=== PATIENT | female | born 1980 | race Caucasian/White ===

== ENCOUNTER 2019-06-11 16:53 | Inpatient (IN) | payer SELFPAY ==
[~2019-06-11] VITALS: Ht 167.6 cm; Wt 70.0 kg
[~2019-06-11 16:53] MED LIST: HYDR-4383 PO
[2019-06-11] MEDS ORDERED: morphine 4 MG/ML inj SYRINge IV PRN (17:10)
[2019-06-11] MEDS ORDERED: normal saline 1000ML IV soln IVB ONE (17:10)
--- NOTE | 2019-06-11 17:30 | NUR ---
Assumed care of pt. C/o abd pain and R rib pain. Bilat eyes appear jaundice and pt states "they've been yellow for a week." VSS. IVF running and pt aware of need for urine sample. Visitor at bedside. Will continue to monitor.
[2019-06-11 17:36] LABS: EOSINOPHILS # (AUTO) 0.1 X10'3 (0-0.9); MONOCYTES # (AUTO) 0.6 X10'3 (0-0.9); WHITE BLOOD COUNT 5.6 X10'3 (4.5-11.0)
[2019-06-11 17:38] LABS: BASOPHILS % (AUTO) 0.6 % (0-1); EOSINOPHILS % (AUTO) 2.1 % (0-6); HEMATOCRIT 39.3 % (35.0-45.0); HEMOGLOBIN 13.7 g/dl (12.0-16.0); LYMPHOCYTES # (AUTO) 1.5 X10'3 (1.1-4.8); LYMPHOCYTES % (AUTO) 26.9 % (21-51); MEAN CORPUSCULAR HEMOGLOBIN 38.8 PG (27.0-31.0); MEAN CORPUSCULAR HGB CONC 34.8 g/dL (33.0-36.5); MEAN CORPUSCULAR VOLUME 111.5 FL (78-98); MONOCYTES % (AUTO) 11.3 % (2-12); NEUTROPHILS # (AUTO) 3.3 X10'3 (1.8-7.7); NEUTROPHILS % (AUTO) 59.1 % (42-75); PLATELET COUNT 122 X10'3 (140-440); RED BLOOD COUNT 3.53 X10'6 (4.20-5.60); RED CELL DISTRIBUTION WIDTH 16.3 % (11.5-14.5)
[2019-06-11 17:42] LABS: ALANINE AMINOTRANSFERASE 131 U/L (12-78); ALBUMIN/GLOBULIN RATIO 0.8 (1.1-1.5); ALKALINE PHOSPHATASE 230 IU/L (46-116); ANION GAP 9 (8-16); ASPARTATE AMINO TRANSFERASE 231 U/L (10-37); BLOOD UREA NITROGEN 5 MG/DL (7-18); BUN/CREATININE RATIO 6.4 (6.6-38.0); CALCIUM 9.6 MG/DL (8.5-10.1); CHLORIDE 97 MMOL/L (99-107); CREATININE 0.78 MG/DL (0.40-0.90); GLUCOSE 100 MG/DL (70-104); LIPASE 698 U/L (73-393); SODIUM 134 MMOL/L (135-145); TOTAL CARBON DIOXIDE 27.7 MMOL/L (24-32); TOTAL PROTEIN 6.8 G/DL (6.4-8.2); eGFR 83 ML/MIN
[2019-06-11 17:46] LABS: POTASSIUM 2.3 MMOL/L (3.5-5.1)
[2019-06-11 17:47] LABS: BILIRUBIN,TOTAL 12.5 MG/DL (0.1-1.0)
[2019-06-11] MEDS ORDERED: potassium Cl 20 mEq SR tablet PO ONE (17:50)
[2019-06-11] MEDS ORDERED: magnesium 2GM in 50ml NS 50 ML IV ONE (17:50)
[2019-06-11] MEDS: potassium Cl 10 mEq/100mL bag IV SCH ×2 (18:06→19:33)
[2019-06-11 18:13] LABS: URINE HCG NEGATIVE (NEG)
[2019-06-11 18:18] LABS: CLARITY,URINE SLIGHTLY CLOUDY (Clear); GLUCOSE, URINE 100 mg/dl (Neg); KETONES,URINE TRACE mg/dl (Neg); LEUKOCYTE ESTERASE ,URINE TRACE (Neg); NITRITES, URINE POSITIVE (Neg); OCCULT BLOOD,URINE MODERATE (Neg); PH,URINE 7.5 (4.8-8.0); PROTEIN,URINE TRACE mg/dl (Neg)
[2019-06-11 18:19] LABS: COLOR,URINE AMBER (Yellow); UA COLLECTION TYPE CLN CATCH MIDSTREAM
[2019-06-11 18:25] LABS: ETHANOL < 0.010 GM/DL (0.0-0.010)
[2019-06-11 18:26] LABS: URINE AMPHETAMINE SCREEN NEGATIVE (Neg); URINE BARBITUATE SCREEN NEGATIVE (Neg); URINE BENZODIAZEPINES SCREEN NEGATIVE (Neg); URINE CANNABINOID SCREEN POSITIVE (Neg); URINE COCAINE SCREEN NEGATIVE (Neg); URINE METHADONE SCREEN NEGATIVE (Neg); URINE OPIATE SCREEN NEGATIVE (Neg); URINE PHENCYCLIDINE SCREEN NEGATIVE (Neg)
[2019-06-11 18:28] LABS: BACTERIA,URINE 4+ /HPF (Neg); MUCUS STRANDS FEW /LPF (Neg); SQUAMOUS EPITHELIAL CELL,UR MANY /LPF (FEW)
[2019-06-11 18:31] LABS: LARGE PLATELETS FEW; PLATELET ESTIMATE DECREASED
[2019-06-11 18:32] LABS: ACETAMINOPHEN < 2.0 UG/ML (10-30); ANISOCYTOSIS 1+; POLYCHROMASIA FEW; TARGET CELLS 1+
[2019-06-11 18:33] LABS: SPHEROCYTES FEW
[2019-06-11] MEDS ORDERED: normal saline 1000ML IV soln IV ONE (19:00)
[2019-06-11] MEDS ORDERED: CefTRIAXone 2gm/D5W 50ml 50 ML IV ONE (19:00)
--- NOTE | 2019-06-11 19:09 | NUR ---
Pt. ambulated to the restroom independently.
[2019-06-11] MEDS ORDERED: magnesium 2GM in 50ml NS 50 ML IV PRN (20:15)
[2019-06-11] MEDS ORDERED: haloperidol lactate 5mg/ml inj IM PRN (20:15)
[2019-06-11] MEDS ORDERED: thiamine inj. 100 MG in normal saline 100ml IV soln 100 ML IV ONE (20:15)
[2019-06-11] MEDS ORDERED: potassium CL 10mEq/100ml bag 100 ML IV PRN ×2 (20:15)
[2019-06-11] MEDS ORDERED: mag hydrox/Alum hydrox/simeth 30ml oral suspension PO PRN (20:15)
[2019-06-11] MEDS ORDERED: magnesium 4gm in 100ml NS 100 ML IV PRN (20:15)
[2019-06-11] MEDS ORDERED: LORazepam 2 mg/ml vial IV PRN ×2 (20:15)
[2019-06-11] MEDS ORDERED: magnesium hydroxide 30ml (MOM) UD suspension PO PRN (20:15)
[2019-06-11] MEDS ORDERED: ondansetron/PF 4mg/2ml inj IV PRN (20:15)
[2019-06-11] MEDS ORDERED: thiamine inj. 100 MG, folic acid inj. 2 MG in normal saline 100ml IV soln 100 ML IV ONE (20:38)
[2019-06-11 21:22] LABS: ALANINE AMINOTRANSFERASE 107 U/L (12-78); ALBUMIN 2.4 G/DL (3.4-5.0); ALKALINE PHOSPHATASE 190 IU/L (46-116); BILIRUBIN,TOTAL 10.4 MG/DL (0.1-1.0); BLOOD UREA NITROGEN 4 MG/DL (7-18); BUN/CREATININE RATIO 5.9 (6.6-38.0); CALCIUM 8.1 MG/DL (8.5-10.1); CHLORIDE 103 MMOL/L (99-107); CREATININE 0.68 MG/DL (0.40-0.90); GLUCOSE 80 MG/DL (70-104); MAGNESIUM 1.3 MG/DL (1.5-2.4); TOTAL CARBON DIOXIDE 28.8 MMOL/L (24-32); eGFR > 90 ML/MIN
--- NOTE | 2019-06-11 21:50 | NUR ---
MARIANA SINGH FROM ER CALLED TO GIVE REPORT. RN WAS ATTENDING TO OTHER PATIENT. ER REQUESTED TO GIVE CHARGE NURSE REPORT. REPORT RECIEVED FROM MARIANA SINGH. REPORTED OFF TO [facility] RN. AWAITING PATIENTS ARRIVAL TO FLOOR.
[2019-06-11 21:53] LABS: ASPARTATE AMINO TRANSFERASE 194 U/L (10-37)
[2019-06-11 21:54] LABS: ALBUMIN/GLOBULIN RATIO 0.8 (1.1-1.5); ANION GAP 10 (8-16); SODIUM 142 MMOL/L (135-145); TOTAL PROTEIN 5.6 G/DL (6.4-8.2)
[2019-06-11 21:59] LABS: POTASSIUM 2.7 MMOL/L (3.5-5.1)
--- NOTE | 2019-06-11 22:00 | NUR ---
pt arrived to unit with all belongings, pt oriented to room, vitals stable, call light within reach, tele box attached
[2019-06-11] MEDS: MVI, adult No.4 with vit. K 10 ML in dextrose 5% water 500ml 500 ML IV SCH ×2 (22:16)
[2019-06-11] MEDS: potassium Cl 20 mEq SR tablet PO PRN (22:49)
[2019-06-11 23:00] VITALS: BP 117/87
--- NOTE | 2019-06-11 23:39 | NUR ---
NOTIFIED PAGER ID: [phone] MESSAGE: Zoila Pena [id number]- Mg 1.3 only IV replacement in order hard stick will need another line for MG, can we get a PO replacement.
[2019-06-12 03:00] VITALS: BP 105/80
[2019-06-12] MEDS: potassium Cl 20 mEq SR tablet PO PRN ×4 (03:31→18:43)
[2019-06-12 05:53] LABS: BASOPHILS % (AUTO) 0.4 % (0-1); EOSINOPHILS # (AUTO) 0.1 X10'3 (0-0.9); EOSINOPHILS % (AUTO) 1.4 % (0-6); HEMATOCRIT 36.2 % (35.0-45.0); HEMOGLOBIN 12.5 g/dl (12.0-16.0); LYMPHOCYTES # (AUTO) 1.4 X10'3 (1.1-4.8); LYMPHOCYTES % (AUTO) 28.6 % (21-51); MEAN CORPUSCULAR HEMOGLOBIN 38.8 PG (27.0-31.0); MEAN CORPUSCULAR HGB CONC 34.6 g/dL (33.0-36.5); MEAN PLATELET VOLUME 10.2 FL (7.4-10.4); MONOCYTES # (AUTO) 0.7 X10'3 (0-0.9); MONOCYTES % (AUTO) 14.9 % (2-12); NEUTROPHILS # (AUTO) 2.6 X10'3 (1.8-7.7); NEUTROPHILS % (AUTO) 54.7 % (42-75); PLATELET COUNT 111 X10'3 (140-440); RED BLOOD COUNT 3.23 X10'6 (4.20-5.60); RED CELL DISTRIBUTION WIDTH 16.1 % (11.5-14.5); WHITE BLOOD COUNT 4.8 X10'3 (4.5-11.0)
[2019-06-12 06:00] VITALS: BP 112/82
[2019-06-12 06:07] LABS: ANION GAP 8 (8-16); BLOOD UREA NITROGEN 4 MG/DL (7-18); CALCIUM 8.2 MG/DL (8.5-10.1); CHLORIDE 104 MMOL/L (99-107); CREATININE 0.67 MG/DL (0.40-0.90); GLUCOSE 87 MG/DL (70-104); SODIUM 137 MMOL/L (135-145); TOTAL CARBON DIOXIDE 24.9 MMOL/L (24-32); eGFR > 90 ML/MIN
[2019-06-12 06:08] LABS: ALANINE AMINOTRANSFERASE 97 U/L (12-78); ALBUMIN 2.4 G/DL (3.4-5.0); ALKALINE PHOSPHATASE 195 IU/L (46-116); AMYLASE 65 U/L (25-115); ASPARTATE AMINO TRANSFERASE 158 U/L (10-37); BILIRUBIN,TOTAL 11.3 MG/DL (0.1-1.0); HDL CHOLESTEROL 6 MG/DL (35-60); LDL CHOLESTEROL 134 MG/DL (50-100); MAGNESIUM 2.4 MG/DL (1.5-2.4)
[2019-06-12 06:13] LABS: ALBUMIN/GLOBULIN RATIO 0.8 (1.1-1.5); CHOL/HDL RATIO 27.7 (0.00-4.99); CHOLESTEROL 166 MG/DL (0-200); LIPASE 1684 U/L (73-393); PHOSPHORUS 1.9 MG/DL (2.3-4.5); TOTAL PROTEIN 5.5 G/DL (6.4-8.2); TRIGLYCERIDES 252 MG/DL (20-135)
--- NOTE | 2019-06-12 06:30 | NUR ---
Problems reprioritized. Patient report given, questions answered & plan of care reviewed with Bridger SINGH.
--- NOTE | 2019-06-12 06:31 | NUR ---
Patient in room PCU 3017. I have received report from SAMANTHA Couch and had the opportunity to ask questions and assume patient care.
[2019-06-12 07:13] LABS: ANISOCYTOSIS 1+; NUCLEATED RED BLOOD CELLS 1 /100WBC (0-0); PLATELET ESTIMATE DECREASED; TOTAL CELLS COUNTED 100
[2019-06-12 07:14] LABS: LARGE PLATELETS FEW; POLYCHROMASIA FEW; SPHEROCYTES FEW; TARGET CELLS 1+
[2019-06-12 07:15] LABS: HYPOCHROMASIA 2+
[2019-06-12] MEDS ORDERED: thiamine inj. 100 MG, folic acid inj. 2 MG in normal saline 100ml IV soln 100 ML IV SCH (08:00)
[2019-06-12] MEDS: K and/or MAG REPLACEMENT MC SCH (08:44)
[2019-06-12] MEDS: MVI, adult No.4 with vit. K 10 ML in dextrose 5% water 500ml 500 ML IV SCH ×2 (08:52)
[2019-06-12] MEDS: nicotine 7mg patch - 24hr TD SCH (08:57)
[2019-06-12] MEDS: dextrose 5%-normal saline 1,000 ML IV SCH ×2 (10:48→18:44)
[2019-06-12 11:00] VITALS: BP 120/88
[2019-06-12] MEDS: CefTRIAXone/D5W-Rocephin 1gm 50 ML IV SCH (12:27)
[2019-06-12 12:45] LABS: CLARITY,URINE CLOUDY (Clear); COLOR,URINE AMBER (Yellow); GLUCOSE, URINE 100 mg/dl (Neg); KETONES,URINE NEGATIVE (Neg); LEUKOCYTE ESTERASE ,URINE NEGATIVE (Neg); NITRITES, URINE NEGATIVE (Neg); OCCULT BLOOD,URINE NEGATIVE (Neg); PH,URINE 7.5 (4.8-8.0); PROTEIN,URINE NEGATIVE (Neg)
[2019-06-12 12:53] LABS: UA COLLECTION TYPE OTHER
[2019-06-12 12:54] LABS: MUCUS STRANDS FEW /LPF (Neg); SQUAMOUS EPITHELIAL CELL,UR MODERATE /LPF (FEW)
[2019-06-12 12:55] LABS: BACTERIA,URINE FEW /HPF (Neg); RBC,URINE 0-2 /HPF (0-2); WBC,URINE 0-4 /HPF (0-4)
[2019-06-12 15:00] VITALS: BP 113/89
[2019-06-12] MEDS ORDERED: acetaminophen 325mg tablet PO PRN (15:40)
[2019-06-12 18:00] VITALS: BP 130/96
--- NOTE | 2019-06-12 18:21 | NUR ---
Patient in room PCU 3017. I have received report from Bridger SINGH and had the opportunity to ask questions and assume patient care.
[2019-06-12 22:00] VITALS: BP 122/86
[2019-06-13 02:00] VITALS: BP 109/79
[2019-06-13] MEDS: dextrose 5%-normal saline 1,000 ML IV SCH ×3 (02:35→19:34)
[2019-06-13 05:28] LABS: BASOPHILS % (AUTO) 0.8 % (0-1); EOSINOPHILS # (AUTO) 0.1 X10'3 (0-0.9); EOSINOPHILS % (AUTO) 1.6 % (0-6); HEMATOCRIT 34.7 % (35.0-45.0); LYMPHOCYTES # (AUTO) 1.3 X10'3 (1.1-4.8); MEAN CORPUSCULAR HGB CONC 34.7 g/dL (33.0-36.5); MEAN CORPUSCULAR VOLUME 112.3 FL (78-98); MEAN PLATELET VOLUME 10.2 FL (7.4-10.4); MONOCYTES # (AUTO) 0.8 X10'3 (0-0.9); MONOCYTES % (AUTO) 15.2 % (2-12); NEUTROPHILS % (AUTO) 57.4 % (42-75); PLATELET COUNT 123 X10'3 (140-440); RED BLOOD COUNT 3.09 X10'6 (4.20-5.60); RED CELL DISTRIBUTION WIDTH 16.6 % (11.5-14.5); WHITE BLOOD COUNT 5.2 X10'3 (4.5-11.0)
[2019-06-13 05:45] LABS: ANION GAP 9 (8-16); BLOOD UREA NITROGEN 3 MG/DL (7-18); BUN/CREATININE RATIO 4.8 (6.6-38.0); CALCIUM 7.6 MG/DL (8.5-10.1); CHLORIDE 107 MMOL/L (99-107); CREATININE 0.62 MG/DL (0.40-0.90); GLUCOSE 91 MG/DL (70-104); MAGNESIUM 1.8 MG/DL (1.5-2.4); SODIUM 141 MMOL/L (135-145); TOTAL CARBON DIOXIDE 24.6 MMOL/L (24-32); eGFR > 90 ML/MIN
[2019-06-13 05:46] LABS: ALANINE AMINOTRANSFERASE 82 U/L (12-78); ALBUMIN 2.3 G/DL (3.4-5.0); ALKALINE PHOSPHATASE 180 IU/L (46-116); AMYLASE 74 U/L (25-115); ASPARTATE AMINO TRANSFERASE 126 U/L (10-37)
[2019-06-13 06:00] VITALS: BP 117/76
[2019-06-13 06:07] LABS: ALBUMIN/GLOBULIN RATIO 0.7 (1.1-1.5); TOTAL PROTEIN 5.4 G/DL (6.4-8.2)
[2019-06-13 06:08] LABS: POTASSIUM 3.2 MMOL/L (3.5-5.1)
[2019-06-13 06:09] LABS: PHOSPHORUS 1.1 MG/DL (2.3-4.5)
--- NOTE | 2019-06-13 06:11 | NUR ---
Patient in room PCU 3017. I have received report from SAMANTHA Day and had the opportunity to ask questions and assume patient care.
--- NOTE | 2019-06-13 06:11 | NUR ---
Problems reprioritized. Patient report given, questions answered & plan of care reviewed with Bridger SINGH.
[2019-06-13] MEDS ORDERED: sodium phosphate inj. 15 MMOL in dextrose 5%-water 150 ML IV PRN (06:20)
[2019-06-13] MEDS ORDERED: Neutra Phos packet PO PRN (06:20)
[2019-06-13] MEDS ORDERED: sodium phosphate inj. 30 MMOL in dextrose 5%-water 250 ML IV ONE (06:20)
[2019-06-13 06:25] LABS: PLATELET ESTIMATE DECREASED
[2019-06-13 06:26] LABS: ANISOCYTOSIS 1+; LARGE PLATELETS FEW; POLYCHROMASIA 1+; STOMATOCYTES 2+; TARGET CELLS 1+
[2019-06-13 07:15] LABS: HIV ANTIBODY 1&2 RAPID NON-REACTIVE (Neg)
[2019-06-13] MEDS: K and/or MAG REPLACEMENT MC SCH (07:25)
[2019-06-13] MEDS: thiamine 100mg tablet PO SCH (07:37)
[2019-06-13] MEDS: folic acid 1mg tablet PO SCH (07:37)
[2019-06-13] MEDS: multivitamins, therapeutics tablet PO SCH (07:37)
[2019-06-13] MEDS: potassium Cl 20 mEq SR tablet PO PRN ×3 (07:37→22:08)
[2019-06-13] MEDS: CefTRIAXone/D5W-Rocephin 1gm 50 ML IV SCH (07:38)
[2019-06-13 07:42] LABS: LIPASE 1575 U/L (73-393)
[2019-06-13] MEDS: nicotine 7mg patch - 24hr TD SCH (07:44)
[2019-06-13 09:10] LABS: HBSAG SCREEN Negative (Negative); HEP A AB, IGM Negative (Negative); HEP B CORE AB, IGM Negative (Negative); HEPATITIS C ANTIBODY <0.1 s/co ratio (0.0-0.9)
[2019-06-13] MEDS ORDERED: magnesium 2GM in 50ml NS 50 ML IV ONE (09:10)
[2019-06-13] MEDS ORDERED: potassium phosphate inj 30 MMOL in normal saline 500ml IV soln 490 ML IV ONE (09:10)
[2019-06-13 11:00] VITALS: BP 107/71
[2019-06-13 15:00] VITALS: BP 125/95
--- NOTE | 2019-06-13 18:05 | NUR ---
Patient in room PCU 3017. I have received report from Bridger SINGH and had the opportunity to ask questions and assume patient care.
--- NOTE | 2019-06-13 18:16 | NUR ---
Problems reprioritized. Patient report given, questions answered & plan of care reviewed with SAMANTHA Barksdale.
[2019-06-13 19:00] VITALS: BP 131/85
[2019-06-13 23:00] VITALS: BP 124/89
[2019-06-14 03:00] VITALS: BP 121/79
[2019-06-14] MEDS: dextrose 5%-normal saline 1,000 ML IV SCH ×3 (03:40→22:41)
[2019-06-14 06:00] VITALS: BP 117/83
--- NOTE | 2019-06-14 06:00 | NUR ---
Problems reprioritized. Patient report given, questions answered & plan of care reviewed with Katharine SINGH.
[2019-06-14 06:14] LABS: EOSINOPHILS # (AUTO) 0.1 X10'3 (0-0.9); LYMPHOCYTES # (AUTO) 1.4 X10'3 (1.1-4.8)
[2019-06-14 06:17] LABS: BASOPHILS % (AUTO) 0.7 % (0-1); EOSINOPHILS % (AUTO) 2.2 % (0-6); HEMATOCRIT 34.3 % (35.0-45.0); HEMOGLOBIN 11.9 g/dl (12.0-16.0); LYMPHOCYTES % (AUTO) 24.1 % (21-51); MEAN CORPUSCULAR HEMOGLOBIN 39.5 PG (27.0-31.0); MEAN CORPUSCULAR HGB CONC 34.7 g/dL (33.0-36.5); MEAN CORPUSCULAR VOLUME 113.8 FL (78-98); MEAN PLATELET VOLUME 10.2 FL (7.4-10.4); MONOCYTES # (AUTO) 1.1 X10'3 (0-0.9); MONOCYTES % (AUTO) 18.8 % (2-12); NEUTROPHILS # (AUTO) 3.1 X10'3 (1.8-7.7); NEUTROPHILS % (AUTO) 54.2 % (42-75); PLATELET COUNT 135 X10'3 (140-440); RED BLOOD COUNT 3.01 X10'6 (4.20-5.60); RED CELL DISTRIBUTION WIDTH 16.9 % (11.5-14.5); WHITE BLOOD COUNT 5.6 X10'3 (4.5-11.0)
[2019-06-14 06:34] LABS: ALANINE AMINOTRANSFERASE 75 U/L (12-78); ALBUMIN 2.2 G/DL (3.4-5.0); ALKALINE PHOSPHATASE 181 IU/L (46-116); AMYLASE 46 U/L (25-115); ANION GAP 10 (8-16); BILIRUBIN,TOTAL 14.3 MG/DL (0.1-1.0); BLOOD UREA NITROGEN 3 MG/DL (7-18); CALCIUM 7.8 MG/DL (8.5-10.1); CHLORIDE 107 MMOL/L (99-107); LIPASE 716 U/L (73-393); MAGNESIUM 1.8 MG/DL (1.5-2.4); SODIUM 140 MMOL/L (135-145); TOTAL CARBON DIOXIDE 22.9 MMOL/L (24-32); eGFR > 90 ML/MIN
--- NOTE | 2019-06-14 06:46 | NUR ---
Patient in room PCU 3017. I have received report from SAMANTHA Barksdale and had the opportunity to ask questions and assume patient care.
[2019-06-14 06:47] LABS: ASPARTATE AMINO TRANSFERASE 129 U/L (10-37)
[2019-06-14 06:48] LABS: ALBUMIN/GLOBULIN RATIO 0.7 (1.1-1.5); GLUCOSE 88 MG/DL (70-104); PHOSPHORUS 2.3 MG/DL (2.3-4.5); TOTAL PROTEIN 5.2 G/DL (6.4-8.2)
[2019-06-14 06:50] LABS: POTASSIUM 3.4 MMOL/L (3.5-5.1)
[2019-06-14] MEDS: multivitamins, therapeutics tablet PO SCH (07:41)
[2019-06-14] MEDS: folic acid 1mg tablet PO SCH (07:41)
[2019-06-14] MEDS: CefTRIAXone/D5W-Rocephin 1gm 50 ML IV SCH (07:42)
[2019-06-14] MEDS: potassium Cl 20 mEq SR tablet PO PRN ×3 (07:42→16:33)
[2019-06-14] MEDS: nicotine 7mg patch - 24hr TD SCH (07:42)
[2019-06-14] MEDS: K and/or MAG REPLACEMENT MC SCH (07:48)
[2019-06-14 07:57] LABS: ANISOCYTOSIS 1+; PLATELET ESTIMATE DECREASED
[2019-06-14 07:58] LABS: POLYCHROMASIA 1+; STOMATOCYTES 1+; TARGET CELLS FEW
--- NOTE | 2019-06-14 08:19 | NUR ---
Patient in room PCU 3017. I have received report from Katharine SINGH and had the opportunity to ask questions and assume patient care.
--- NOTE | 2019-06-14 08:19 | NUR ---
Problems reprioritized. Patient report given, questions answered & plan of care reviewed with SAMANTHA Evans.
[2019-06-14] MEDS: thiamine 100mg tablet PO SCH (08:33)
[2019-06-14 12:00] VITALS: BP 121/82
[2019-06-14 16:00] VITALS: BP 116/81
--- NOTE | 2019-06-14 18:00 | NUR ---
Patient in room PCU 3017. I have received report from Cristina SINGH and had the opportunity to ask questions and assume patient care.
--- NOTE | 2019-06-14 18:00 | NUR ---
Problems reprioritized. Patient report given, questions answered & plan of care reviewed with Apolonia SINGH.
[2019-06-14 19:00] VITALS: BP 124/86
[2019-06-14] MEDS: lactobacillus rhamnosus 10,000 MMU CELLS/CAPSULE PO SCH (20:03)
[2019-06-14] MEDS: lactulose 20gm/30ml cup PO SCH (20:03)
[2019-06-14 23:00] VITALS: BP 120/87
[2019-06-15 03:00] VITALS: BP 118/81
[2019-06-15 05:39] LABS: BASOPHILS % (AUTO) 0.8 % (0-1); EOSINOPHILS # (AUTO) 0.1 X10'3 (0-0.9); MONOCYTES # (AUTO) 1.1 X10'3 (0-0.9); RED CELL DISTRIBUTION WIDTH 16.7 % (11.5-14.5)
[2019-06-15 05:40] LABS: EOSINOPHILS % (AUTO) 2.3 % (0-6); HEMATOCRIT 34.9 % (35.0-45.0); LYMPHOCYTES # (AUTO) 1.3 X10'3 (1.1-4.8); LYMPHOCYTES % (AUTO) 21.4 % (21-51); MEAN CORPUSCULAR HEMOGLOBIN 39.1 PG (27.0-31.0); MEAN CORPUSCULAR HGB CONC 34.3 g/dL (33.0-36.5); MEAN PLATELET VOLUME 10.6 FL (7.4-10.4); MONOCYTES % (AUTO) 18.8 % (2-12); NEUTROPHILS # (AUTO) 3.4 X10'3 (1.8-7.7); NEUTROPHILS % (AUTO) 56.7 % (42-75); PLATELET COUNT 150 X10'3 (140-440); RED BLOOD COUNT 3.06 X10'6 (4.20-5.60)
[2019-06-15 05:46] LABS: ALANINE AMINOTRANSFERASE 61 U/L (12-78); ALBUMIN 2.1 G/DL (3.4-5.0); ALKALINE PHOSPHATASE 179 IU/L (46-116); AMYLASE 35 U/L (25-115); ANION GAP 9 (8-16); BLOOD UREA NITROGEN 1 MG/DL (7-18); CALCIUM 8.5 MG/DL (8.5-10.1); CHLORIDE 107 MMOL/L (99-107); LIPASE 454 U/L (73-393); MAGNESIUM 1.7 MG/DL (1.5-2.4); SODIUM 138 MMOL/L (135-145); TOTAL CARBON DIOXIDE 21.7 MMOL/L (24-32)
[2019-06-15 06:00] VITALS: BP 124/76
--- NOTE | 2019-06-15 06:00 | NUR ---
Patient in room PCU 3017. I have received report from Apolonia SINGH and had the opportunity to ask questions and assume patient care.
[2019-06-15 06:02] LABS: ASPARTATE AMINO TRANSFERASE 116 U/L (10-37)
[2019-06-15 06:05] LABS: BUN/CREATININE RATIO 2.3 (6.6-38.0); CREATININE 0.43 MG/DL (0.40-0.90); GLUCOSE 73 MG/DL (70-104); POTASSIUM 3.5 MMOL/L (3.5-5.1); eGFR > 90 ML/MIN
[2019-06-15 06:06] LABS: ALBUMIN/GLOBULIN RATIO 0.7 (1.1-1.5); PHOSPHORUS 2.6 MG/DL (2.3-4.5); TOTAL PROTEIN 5.1 G/DL (6.4-8.2)
--- NOTE | 2019-06-15 06:07 | NUR ---
Problems reprioritized. Patient report given, questions answered & plan of care reviewed with Cristina SINGH. Addendum: 06/15/19 at 1148 by Cristina Banegas RN incorrect charting
[2019-06-15] MEDS: multivitamins, therapeutics tablet PO SCH (07:59)
[2019-06-15] MEDS: thiamine 100mg tablet PO SCH (07:59)
[2019-06-15] MEDS: lactulose 20gm/30ml cup PO SCH (07:59)
[2019-06-15] MEDS: lactobacillus rhamnosus 10,000 MMU CELLS/CAPSULE PO SCH ×2 (07:59→20:23)
[2019-06-15] MEDS: K and/or MAG REPLACEMENT MC SCH (08:00)
[2019-06-15] MEDS: CefTRIAXone/D5W-Rocephin 1gm 50 ML IV SCH (08:00)
[2019-06-15] MEDS: folic acid 1mg tablet PO SCH (08:00)
[2019-06-15] MEDS: nicotine 7mg patch - 24hr TD SCH (08:01)
[2019-06-15 10:08] LABS: PLATELET ESTIMATE NORMAL
[2019-06-15 10:09] LABS: ANISOCYTOSIS 1+; POLYCHROMASIA 1+; STOMATOCYTES 2+; TARGET CELLS FEW
[2019-06-15 11:00] VITALS: BP 108/72
--- NOTE | 2019-06-15 11:00 | NUR ---
Received report that patient had left unit and was seen outside hospital with s/o. Patient returned and I discussed hospital policy and safety issues with leaving. Patient verbalized understanding and agrees to comply.
[2019-06-15 15:00] VITALS: BP 108/76
--- NOTE | 2019-06-15 18:25 | NUR ---
Problems reprioritized. Patient report given, questions answered & plan of care reviewed with Shirley SINGH.
--- NOTE | 2019-06-15 18:51 | NUR ---
Patient in room PCU 3017. I have received report from Cristina SINGH and had the opportunity to ask questions and assume patient care.
[2019-06-15 19:00] VITALS: BP 112/76
[2019-06-15 22:00] VITALS: BP 118/83
[2019-06-16 02:00] VITALS: BP 127/64
[2019-06-16 06:00] VITALS: BP 121/90
--- NOTE | 2019-06-16 06:00 | NUR ---
Patient in room PCU 3017. I have received report from Shirley SINGH and had the opportunity to ask questions and assume patient care.
--- NOTE | 2019-06-16 06:09 | NUR ---
Problems reprioritized. Patient report given, questions answered & plan of care reviewed with Cristina SINGH.
[2019-06-16 06:18] LABS: ALANINE AMINOTRANSFERASE 58 U/L (12-78); ALBUMIN 1.9 G/DL (3.4-5.0); ALKALINE PHOSPHATASE 180 IU/L (46-116); AMYLASE 51 U/L (25-115); ANION GAP 9 (8-16); BLOOD UREA NITROGEN 2 MG/DL (7-18); BUN/CREATININE RATIO 5.7 (6.6-38.0); CALCIUM 8.5 MG/DL (8.5-10.1); CHLORIDE 106 MMOL/L (99-107); CREATININE 0.35 MG/DL (0.40-0.90); LIPASE 870 U/L (73-393); MAGNESIUM 1.5 MG/DL (1.5-2.4); SODIUM 138 MMOL/L (135-145); TOTAL CARBON DIOXIDE 23.4 MMOL/L (24-32); eGFR > 90 ML/MIN
[2019-06-16 06:19] LABS: BASOPHILS # (AUTO) 0.1 X10'3 (0-0.2); EOSINOPHILS # (AUTO) 0.1 X10'3 (0-0.9)
[2019-06-16 06:24] LABS: BASOPHILS % (AUTO) 0.9 % (0-1); EOSINOPHILS % (AUTO) 1.4 % (0-6); HEMATOCRIT 35.6 % (35.0-45.0); HEMOGLOBIN 12.3 g/dl (12.0-16.0); LYMPHOCYTES # (AUTO) 1.3 X10'3 (1.1-4.8); LYMPHOCYTES % (AUTO) 19.8 % (21-51); MEAN CORPUSCULAR HEMOGLOBIN 39.1 PG (27.0-31.0); MEAN CORPUSCULAR HGB CONC 34.6 g/dL (33.0-36.5); MEAN PLATELET VOLUME 10.3 FL (7.4-10.4); MONOCYTES # (AUTO) 1.3 X10'3 (0-0.9); MONOCYTES % (AUTO) 19.6 % (2-12); NEUTROPHILS # (AUTO) 3.9 X10'3 (1.8-7.7); NEUTROPHILS % (AUTO) 58.3 % (42-75); PLATELET COUNT 180 X10'3 (140-440); RED BLOOD COUNT 3.15 X10'6 (4.20-5.60); RED CELL DISTRIBUTION WIDTH 16.3 % (11.5-14.5); WHITE BLOOD COUNT 6.7 X10'3 (4.5-11.0)
[2019-06-16 06:33] LABS: ASPARTATE AMINO TRANSFERASE 107 U/L (10-37)
[2019-06-16 06:36] LABS: GLUCOSE 70 MG/DL (70-104); PHOSPHORUS 2.9 MG/DL (2.3-4.5); POTASSIUM 3.3 MMOL/L (3.5-5.1)
[2019-06-16 06:41] LABS: ALBUMIN/GLOBULIN RATIO 0.6 (1.1-1.5); TOTAL PROTEIN 5.1 G/DL (6.4-8.2)
[2019-06-16] MEDS: K and/or MAG REPLACEMENT MC SCH (08:00)
[2019-06-16] MEDS: folic acid 1mg tablet PO SCH (08:11)
[2019-06-16] MEDS: multivitamins, therapeutics tablet PO SCH (08:11)
[2019-06-16] MEDS: lactobacillus rhamnosus 10,000 MMU CELLS/CAPSULE PO SCH ×2 (08:11→20:51)
[2019-06-16] MEDS: thiamine 100mg tablet PO SCH (08:11)
[2019-06-16] MEDS: nicotine 7mg patch - 24hr TD SCH (08:13)
[2019-06-16] MEDS ORDERED: potassium Cl 20 mEq SR tablet PO PRN (08:35)
[2019-06-16] MEDS ORDERED: magnesium Cl slow-release 64mg tablet PO PRN (08:35)
[2019-06-16] MEDS: potassium Cl 20 mEq SR tablet PO PRN ×3 (10:39→20:51)
[2019-06-16 11:00] VITALS: BP 111/79
[2019-06-16 11:22] LABS: ANISOCYTOSIS 1+; PLATELET ESTIMATE DECREASED; TOTAL CELLS COUNTED 100
[2019-06-16 11:24] LABS: POLYCHROMASIA FEW; STOMATOCYTES FEW; TARGET CELLS FEW
--- NOTE | 2019-06-16 13:55 | NUR ---
Initial: Pt admit w/ etoh hepatitis remains jaundiced per MD note. Also pancreatitis secondary to etoh per MD. Per EMR pt has been on 2 year etoh binge drinks fifth of vodka daily. On thiamin/folic/MVI receiving electrolyte replacement per protocol. PO 100% mechanical soft diet meeting needs. LBM 06/15. Will continue to monitor. Rec: 1. continue mechanical soft diet 2. MVI/thiamin/folic for etoh 3. consider pancreatic enzymes per MD given pancreatitis 4. wt per rx Addendum: 06/16/19 at [address] Amended: Links added.
[2019-06-16 15:00] VITALS: BP 113/78
--- NOTE | 2019-06-16 18:30 | NUR ---
Problems reprioritized. Patient report given, questions answered & plan of care reviewed with Shirley SINGH.
--- NOTE | 2019-06-16 18:30 | NUR ---
Patient in room PCU 3017. I have received report from Cristina SINGH and had the opportunity to ask questions and assume patient care.
[2019-06-16 19:00] VITALS: BP 116/81
[2019-06-16 23:00] VITALS: BP 120/85
[2019-06-17 02:00] VITALS: BP 121/77
[2019-06-17 05:11] LABS: BASOPHILS # (AUTO) 0.1 X10'3 (0-0.2); EOSINOPHILS # (AUTO) 0.1 X10'3 (0-0.9); MONOCYTES # (AUTO) 1.3 X10'3 (0-0.9); WHITE BLOOD COUNT 6.8 X10'3 (4.5-11.0)
[2019-06-17 05:17] LABS: BASOPHILS % (AUTO) 0.8 % (0-1); EOSINOPHILS % (AUTO) 2.1 % (0-6); HEMATOCRIT 36.1 % (35.0-45.0); HEMOGLOBIN 12.4 g/dl (12.0-16.0); LYMPHOCYTES # (AUTO) 1.8 X10'3 (1.1-4.8); LYMPHOCYTES % (AUTO) 26.8 % (21-51); MEAN CORPUSCULAR HGB CONC 34.4 g/dL (33.0-36.5); MEAN CORPUSCULAR VOLUME 113.4 FL (78-98); MEAN PLATELET VOLUME 10.1 FL (7.4-10.4); MONOCYTES % (AUTO) 19.1 % (2-12); NEUTROPHILS # (AUTO) 3.5 X10'3 (1.8-7.7); NEUTROPHILS % (AUTO) 51.2 % (42-75); PLATELET COUNT 198 X10'3 (140-440); RED BLOOD COUNT 3.18 X10'6 (4.20-5.60); RED CELL DISTRIBUTION WIDTH 15.8 % (11.5-14.5)
[2019-06-17 05:40] LABS: ALANINE AMINOTRANSFERASE 54 U/L (12-78); ALKALINE PHOSPHATASE 185 IU/L (46-116); ANION GAP 11 (8-16); BILIRUBIN,TOTAL 19.8 MG/DL (0.1-1.0); BLOOD UREA NITROGEN 4 MG/DL (7-18); CALCIUM 9.1 MG/DL (8.5-10.1); CHLORIDE 105 MMOL/L (99-107); LIPASE 591 U/L (73-393); SODIUM 140 MMOL/L (135-145); TOTAL CARBON DIOXIDE 24.2 MMOL/L (24-32)
[2019-06-17 05:54] LABS: ALBUMIN/GLOBULIN RATIO 0.6 (1.1-1.5); ASPARTATE AMINO TRANSFERASE 123 U/L (10-37); BUN/CREATININE RATIO 9.5 (6.6-38.0); CREATININE 0.42 MG/DL (0.40-0.90); GLUCOSE 66 MG/DL (70-104); POTASSIUM 3.9 MMOL/L (3.5-5.1); TOTAL PROTEIN 5.2 G/DL (6.4-8.2); eGFR > 90 ML/MIN
--- NOTE | 2019-06-17 06:00 | NUR ---
Patient in room PCU 3017. I have received report from SAMANTHA Watson and had the opportunity to ask questions and assume patient care. Pt is awake and alert in NAD
--- NOTE | 2019-06-17 06:25 | NUR ---
Problems reprioritized. Patient report given, questions answered & plan of care reviewed with Henry RN and Radha RN.
[2019-06-17 07:11] VITALS: BP 115/84
[2019-06-17] MEDS: K and/or MAG REPLACEMENT MC SCH (08:00)
[2019-06-17] MEDS: lactobacillus rhamnosus 10,000 MMU CELLS/CAPSULE PO SCH (08:22)
[2019-06-17] MEDS: thiamine 100mg tablet PO SCH (08:23)
[2019-06-17] MEDS ORDERED: NO HOME MEDS (08:23)
[2019-06-17] MEDS: folic acid 1mg tablet PO SCH (08:23)
[2019-06-17] MEDS: multivitamins, therapeutics tablet PO SCH (08:23)
[2019-06-17] MEDS: nicotine 7mg patch - 24hr TD SCH (08:24)
[2019-06-17 11:00] VITALS: BP 120/77
[2019-06-17] MEDS ORDERED: NICO-630 TD (11:52)
[2019-06-17] MEDS ORDERED: FOLI1TAB16 PO (11:52)
[2019-06-17] MEDS ORDERED: MULT-1179 PO (11:52)
[2019-06-17] MEDS ORDERED: thiamine tablet PO (11:52)
[2019-06-17] MEDS ORDERED: ONDA4TAB6 PO (11:52)
--- NOTE | 2019-06-17 13:00 | NUR ---
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
[2019-06-17 14:24] LABS: ANISOCYTOSIS 1+; PLATELET ESTIMATE NORMAL; TOTAL CELLS COUNTED 100
[2019-06-17 14:25] LABS: TARGET CELLS FEW
[2019-06-17 14:26] LABS: LARGE PLATELETS FEW; TOXIC VACUOLATION 1+
== END 2019-06-17 13:19 | disposition home or self-care (01) | DRG 432 ==
LOC: ER 19:52 → PCU 3S 21:58 → CMPBEDREQ 22:32 → PCU 3S 06-13 12:10
PROVIDERS: ADMIT Family Medicine; ATTEND Family Medicine
DX: K70.10 Alcoholic hepatitis without ascites (principal); K85.20 Alcohol induced acute pancreatitis without necrosis or infection; N39.0 Urinary tract infection, site not specified; E78.5 Hyperlipidemia, unspecified; F12.10 Cannabis abuse, uncomplicated; F10.10 Alcohol abuse, uncomplicated; E87.6 Hypokalemia; F17.200 Nicotine dependence, unspecified, uncomplicated; E83.42 Hypomagnesemia; D69.6 Thrombocytopenia, unspecified; I10 Essential (primary) hypertension; K76.0 Fatty (change of) liver, not elsewhere classified; N83.202 Unspecified ovarian cyst, left side; Z82.3 Family history of stroke; Z83.3 Family history of diabetes mellitus; Z88.8 Allergy status to other drugs, medicaments and biological substances; Z71.41 Alcohol abuse counseling and surveillance of alcoholic; Z71.6 Tobacco abuse counseling
CPT/HCPCS: 36415; 74176; 74181; 76700; 76705; 80053; 80061; 80305; 80320; 80329; 81001; 81025; 82140; 82150; 83690; 83735; 84100; 84132; 85025; 85610; 86703; 86705; 86706; 86709; 86803; 87081; 87088; 87340; 96365; 96366; 96367; 96375; 97116; 97161; 99285; G0378; J0696; J3411; J3475; J3480; J3490; J7040; J7042; J7060

== ENCOUNTER 2019-07-28 11:58 | Emergency (ER) | payer MEDICAID, OTHER ==
[~2019-07-28] VITALS: Ht 167.6 cm; Wt 78.2 kg
[~2019-07-28 11:58] MED LIST changes: +FOLI1TAB16 PO; -HYDR-4383 PO; +MULT-1179 PO; +NICO-630 TD; +ONDA4TAB6 PO; +thiamine tablet PO
--- NOTE | 2019-07-28 13:08 | NUR ---
PATIENT STATES SHE WAS HOSPITALIZED A FEW WEEKS AGO WITH ELEVATED BILI LEVELS. STATES SHE IS HAVING LEFT SIDE FACIAL AND JAW PAIN FROM TOOTH ACHE. SHE WOULD LIKE TO HAVE THE TOOTH LOOKED AT AND IS IN NEED OF CLEARANCE TO RETURN TO WORK FROM RECENT HOSPITALIZATION. STATES SHE IS UNABLE TO GET IN TO SEE HER PRIMARY CARE DOCTOR AND CANNOT GET APPOINTMENT UNTIL AUGUST.
[2019-07-28] MEDS ORDERED: PENI250T2 PO (13:40)
[2019-07-28] MEDS ORDERED: NAPR-56 PO (13:40)
[2019-07-28 13:54] VITALS: BP 144/98
== END 2019-07-28 14:06 | disposition home or self-care (01) ==
LOC: ER 11:59
DX: K08.89 Other specified disorders of teeth and supporting structures (principal); Z88.8 Allergy status to other drugs, medicaments and biological substances; Z79.899 Other long term (current) drug therapy
CPT/HCPCS: 99283

== ENCOUNTER 2021-04-30 18:07 | Emergency (ER) | payer MEDICAID ==
[~2021-04-30] VITALS: Ht 167.6 cm; Wt 75.0 kg
[~2021-04-30 18:07] MED LIST changes: +ACET-1008 PO; -FOLI1TAB16 PO; +FURO-150 PO; -MULT-1179 PO; -NICO-630 TD; +SPIR25TA5 PO; -thiamine tablet PO
[2021-04-30 19:27] LABS: BASOPHILS # (AUTO) 0.1 X10'3 (0-0.2); BASOPHILS % (AUTO) 0.6 % (0-1); EOSINOPHILS # (AUTO) 0.1 X10'3 (0-0.9); EOSINOPHILS % (AUTO) 1.1 % (0-6); HEMATOCRIT 36.4 % (35.0-45.0); HEMOGLOBIN 12.2 g/dl (12.0-16.0); LYMPHOCYTES # (AUTO) 1.8 X10'3 (1.1-4.8); MEAN CORPUSCULAR HEMOGLOBIN 33.1 PG (27.0-31.0); MEAN CORPUSCULAR HGB CONC 33.5 g/dL (33.0-36.5); MEAN CORPUSCULAR VOLUME 98.8 FL (78-98); MEAN PLATELET VOLUME 8.1 FL (7.4-10.4); MONOCYTES # (AUTO) 0.9 X10'3 (0-0.9); MONOCYTES % (AUTO) 7.7 % (2-12); NEUTROPHILS # (AUTO) 8.3 X10'3 (1.8-7.7); NEUTROPHILS % (AUTO) 74.6 % (42-75); PLATELET COUNT 247 X10'3 (140-440); RED BLOOD COUNT 3.69 X10'6 (4.20-5.60); RED CELL DISTRIBUTION WIDTH 16.4 % (11.5-14.5); WHITE BLOOD COUNT 11.2 X10'3 (4.5-11.0)
[2021-04-30 19:46] LABS: ALANINE AMINOTRANSFERASE 22 U/L (12-78); ALBUMIN 2.5 G/DL (3.4-5.0); ALKALINE PHOSPHATASE 422 IU/L (46-116); ANION GAP 9 (8-16); ASPARTATE AMINO TRANSFERASE 105 U/L (10-37); BILIRUBIN,TOTAL 5.2 MG/DL (0.1-1.0); BLOOD UREA NITROGEN 10 MG/DL (7-18); CALCIUM 8.4 MG/DL (8.5-10.1); CHLORIDE 97 MMOL/L (99-107); CREATININE 0.77 MG/DL (0.40-0.90); GLUCOSE 82 MG/DL (70-104); SODIUM 134 MMOL/L (135-145); eGFR 83 ML/MIN
[2021-04-30 19:49] LABS: ALBUMIN/GLOBULIN RATIO 0.4 (1.1-1.5); TOTAL PROTEIN 8.5 G/DL (6.4-8.2)
[2021-04-30 19:52] LABS: POTASSIUM 2.4 MMOL/L (3.5-5.1)
[2021-04-30] MEDS ORDERED: potassium Cl 20 mEq SR tablet PO STA (20:50)
[2021-04-30] MEDS ORDERED: potassium Cl 40 mEq/0.45% sodium chloride IV soln 520ml IV ONE (20:50)
[2021-04-30] MEDS ORDERED: magnesium 2GM in 50ml NS 50 ML IV ONE (20:50)
[2021-04-30] MEDS ORDERED: Potassium Cl 40 MEQ in sodium chloride 0.45% 500 ML IV ONE (21:00)
[2021-04-30] MEDS ORDERED: POTASSIUM BICARB 20meq eff tab 20 MEQ TABLET.EFF PO ONE (22:00)
[2021-05-01] MEDS ORDERED: albumin (human) 25% 100 ML IV solution IV ONE (00:40)
[2021-05-01] MEDS: magnesium 2GM in 50ml NS 50 ML IV SCH ×2 (00:40→01:40)
[2021-05-01] MEDS ORDERED: potassium Cl 20 mEq SR tablet PO ONE (00:40)
[2021-05-01] MEDS: potassium Cl 10 mEq/100mL bag IV SCH ×2 (00:45→01:45)
[2021-05-01] MEDS ORDERED: POTA20TA19 PO (02:15)
[2021-05-01 02:55] LABS: ANION GAP 9 (8-16); BLOOD UREA NITROGEN 9 MG/DL (7-18); BUN/CREATININE RATIO 14.8 (6.6-38.0); CHLORIDE 99 MMOL/L (99-107); CREATININE 0.61 MG/DL (0.40-0.90); GLUCOSE 66 MG/DL (70-104); POTASSIUM 3.1 MMOL/L (3.5-5.1); SODIUM 136 MMOL/L (135-145); TOTAL CARBON DIOXIDE 27.7 MMOL/L (24-32)
[2021-05-01 02:56] LABS: ALANINE AMINOTRANSFERASE 15 U/L (12-78); ALBUMIN 2.2 G/DL (3.4-5.0); ALKALINE PHOSPHATASE 359 IU/L (46-116); ASPARTATE AMINO TRANSFERASE 89 U/L (10-37); BILIRUBIN,TOTAL 4.3 MG/DL (0.1-1.0); CALCIUM 8.2 MG/DL (8.5-10.1); eGFR > 90 ML/MIN
[2021-05-01 02:56] LABS: BODY FLUID PH (NON-PLEURAL) 7.5
[2021-05-01 02:58] LABS: ALBUMIN/GLOBULIN RATIO 0.4 (1.1-1.5); TOTAL PROTEIN 7.3 G/DL (6.4-8.2)
[2021-05-01 03:17] LABS: GLUCOSE,BODY FLUID 75 MG/DL; TOTAL PROTEIN,BODY FLUID 3.3 G/DL
[2021-05-01 03:20] LABS: LYMPHOCYTES,BODY FLUID 71 %; MONOCYTES,BODY FLUID 7 %; NEUTROPHILS,BODY FLUID 22 %
[2021-05-01 03:23] LABS: BFAPPEAR HAZY; BFCOLOR YELLOW; BFVOLUME 60 ML
[2021-05-01 03:24] LABS: BF RBC COUNT 788 /CU MM; BF WBC COUNT 53 /CU MM (0-1000)
[2021-05-01 03:45] VITALS: BP 119/85
== END 2021-05-02 06:32 | disposition home or self-care (01) ==
LOC: ER 18:09
DX: K70.31 Alcoholic cirrhosis of liver with ascites (principal); R06.02 Shortness of breath; F17.200 Nicotine dependence, unspecified, uncomplicated; Z72.89 Other problems related to lifestyle; Z88.8 Allergy status to other drugs, medicaments and biological substances; Z79.899 Other long term (current) drug therapy
CPT/HCPCS: 36415; 49083; 71045; 80053; 82140; 82945; 83880; 83986; 84157; 84484; 85025; 85610; 87070; 89051; 93005; 96365; 96366; 96367; 96368; 99285; J3475; J3480; P9047; 96375

== ENCOUNTER 2021-06-02 20:35 | Emergency (ER) | payer MEDICAID ==
[~2021-06-02] VITALS: Ht 167.6 cm; Wt 78.6 kg
[2021-06-02] MEDS ORDERED: LIDOcaine 1% W/epiNEPHrine 1:100,000 20ml vial SQ ONE (21:30)
[2021-06-02 21:50] LABS: ALBUMIN 2.5 G/DL (3.4-5.0); ANION GAP 11 (8-16); BLOOD UREA NITROGEN 6 MG/DL (7-18); BUN/CREATININE RATIO 8.7 (6.6-38.0); CALCIUM 8.3 MG/DL (8.5-10.1); CHLORIDE 96 MMOL/L (99-107); CREATININE 0.69 MG/DL (0.40-0.90); GLUCOSE 103 MG/DL (70-104); MAGNESIUM 1.4 MG/DL (1.5-2.4); SODIUM 135 MMOL/L (135-145); TOTAL CARBON DIOXIDE 28.1 MMOL/L (24-32); TOTAL PROTEIN 8.4 G/DL (6.4-8.2); eGFR > 90 ML/MIN
[2021-06-02 21:51] LABS: ALANINE AMINOTRANSFERASE 17 U/L (12-78); ALBUMIN/GLOBULIN RATIO 0.4 (1.1-1.5); ALKALINE PHOSPHATASE 364 IU/L (46-116); ASPARTATE AMINO TRANSFERASE 69 U/L (10-37); LIPASE 202 U/L (73-393)
[2021-06-02 21:53] LABS: POTASSIUM 2.3 MMOL/L (3.5-5.1)
[2021-06-02] MEDS ORDERED: potassium Cl 10 mEq/100mL bag IV ONE (22:00)
[2021-06-02] MEDS ORDERED: potassium Cl 20 mEq SR tablet PO ONE (22:00)
[2021-06-02] MEDS ORDERED: magnesium 2GM in 50ml NS 50 ML IV ONE (22:00)
[2021-06-02 23:59] VITALS: BP 127/89
== END 2021-06-03 01:23 | disposition home or self-care (01) ==
LOC: ER 20:36
DX: R18.8 Other ascites (principal); R14.0 Abdominal distension (gaseous); E87.6 Hypokalemia; E83.42 Hypomagnesemia; Z72.89 Other problems related to lifestyle; Z88.8 Allergy status to other drugs, medicaments and biological substances; Z79.899 Other long term (current) drug therapy
CPT/HCPCS: 36415; 49083; 80053; 83690; 83735; 96365; 96366; 96368; 99285; J3475; J3480

== ENCOUNTER 2021-06-23 16:50 | Emergency (ER) | payer MEDICAID ==
[~2021-06-23] VITALS: Ht 165.1 cm; Wt 54.5 kg
[2021-06-23 17:03] VITALS: BP 124/100
[2021-06-23] MEDS ORDERED: dexamethasone 4mg tablet PO ONE (18:00)
[2021-06-23] MEDS ORDERED: FURO-150 PO (18:03)
[2021-06-23] MEDS ORDERED: SPIR50TA5 PO (18:03)
[2021-06-23] MEDS ORDERED: POTA10TA36 PO (18:03)
== END 2021-06-23 18:40 | disposition home or self-care (01) ==
LOC: ER 16:51
DX: U07.1 COVID-19 (principal); K70.31 Alcoholic cirrhosis of liver with ascites; R05 Cough; R10.84 Generalized abdominal pain; R06.02 Shortness of breath; R14.0 Abdominal distension (gaseous); Z76.0 Encounter for issue of repeat prescription; Z72.89 Other problems related to lifestyle; Z88.8 Allergy status to other drugs, medicaments and biological substances; Z79.899 Other long term (current) drug therapy
CPT/HCPCS: 71045; 99283

== ENCOUNTER 2021-08-24 17:47 | Emergency (ER) | payer MEDICAID ==
[~2021-08-24] VITALS: Ht 167.6 cm; Wt 75.0 kg
[~2021-08-24 17:47] MED LIST changes: +POTA10TA36 PO; +SPIR50TA5 PO
[2021-08-24 19:09] LABS: BASOPHILS # (AUTO) 0.1 X10'3 (0-0.2); BASOPHILS % (AUTO) 0.8 % (0-1); EOSINOPHILS % (AUTO) 0.5 % (0-6); HEMATOCRIT 42.1 % (35.0-45.0); HEMOGLOBIN 14.4 g/dl (12.0-16.0); LYMPHOCYTES # (AUTO) 2.2 X10'3 (1.1-4.8); LYMPHOCYTES % (AUTO) 25.5 % (21-51); MEAN CORPUSCULAR HEMOGLOBIN 32.9 PG (27.0-31.0); MEAN CORPUSCULAR HGB CONC 34.3 g/dL (33.0-36.5); MONOCYTES # (AUTO) 0.9 X10'3 (0-0.9); MONOCYTES % (AUTO) 10.3 % (2-12); NEUTROPHILS # (AUTO) 5.4 X10'3 (1.8-7.7); NEUTROPHILS % (AUTO) 62.9 % (42-75); PLATELET COUNT 333 X10'3 (140-440); RED BLOOD COUNT 4.38 X10'6 (4.20-5.60); RED CELL DISTRIBUTION WIDTH 15.4 % (11.5-14.5); WHITE BLOOD COUNT 8.5 X10'3 (4.5-11.0)
[2021-08-24 19:19] LABS: PARTIAL THROMBOPLASTIN TIME 30 SECONDS (22-32)
[2021-08-24 19:21] LABS: ALANINE AMINOTRANSFERASE 8 U/L (12-78); ALBUMIN 2.6 G/DL (3.4-5.0); ALBUMIN/GLOBULIN RATIO 0.4 (1.1-1.5); ALKALINE PHOSPHATASE 432 IU/L (46-116); ANION GAP 7 (8-16); ASPARTATE AMINO TRANSFERASE 35 U/L (10-37); BILIRUBIN,TOTAL 1.9 MG/DL (0.1-1.0); BLOOD UREA NITROGEN 7 MG/DL (7-18); BUN/CREATININE RATIO 9.6 (6.6-38.0); CHLORIDE 103 MMOL/L (99-107); CREATININE 0.73 MG/DL (0.40-0.90); GLUCOSE 91 MG/DL (70-104); POTASSIUM 3.7 MMOL/L (3.5-5.1); SODIUM 138 MMOL/L (135-145); TOTAL CARBON DIOXIDE 28.3 MMOL/L (24-32); TOTAL PROTEIN 8.7 G/DL (6.4-8.2); eGFR 88 ML/MIN
[2021-08-24] MEDS ORDERED: albumin (human) 25% 100 ML IV solution IV ONE (22:35)
[2021-08-24 22:53] LABS: URINE HCG NEGATIVE (NEG)
[2021-08-24 23:07] LABS: CLARITY,URINE SLIGHTLY CLOUDY (Clear); COLOR,URINE YELLOW (Yellow); GLUCOSE, URINE NEGATIVE (Neg); KETONES,URINE NEGATIVE (Neg); PH,URINE 6.5 (4.8-8.0); PROTEIN,URINE NEGATIVE (Neg); UA COLLECTION TYPE CLN CATCH MIDSTREAM
[2021-08-24 23:08] LABS: BACTERIA,URINE 4+ /HPF (Neg); LEUKOCYTE ESTERASE ,URINE TRACE (Neg); NITRITES, URINE POSITIVE (Neg); OCCULT BLOOD,URINE NEGATIVE (Neg); RBC,URINE 0-2 /HPF (0-2); SQUAMOUS EPITHELIAL CELL,UR FEW /LPF (FEW)
[2021-08-24 23:12] VITALS: BP 154/113
[2021-08-26] MEDS ORDERED: CEPH250T PO (09:41)
--- NOTE | 2021-08-28 11:33 | NUR ---
PT CALLED REGARDING HER VISIT ON 08/25. INFORMED THAT SHE HAS A UTI AND AN ABX HAS BEEN ORDERED. PT REQUESTED THAT ABX BE CALLED INTO [facility] [address]. KEFLEX 250MG PO Q6 HRS #28 WAS CALLED INTO [facility] [address] REQUESTED BY PT.
== END 2021-08-25 00:49 | disposition home or self-care (01) ==
LOC: ER 17:48
DX: K70.31 Alcoholic cirrhosis of liver with ascites (principal); R10.84 Generalized abdominal pain; Z72.89 Other problems related to lifestyle; Z88.8 Allergy status to other drugs, medicaments and biological substances; Z79.899 Other long term (current) drug therapy
CPT/HCPCS: 36415; 49083; 80053; 81001; 81025; 85025; 85610; 85730; 87077; 87088; 87186; 96365; 99285; P9047

== ENCOUNTER 2021-10-13 08:29 | Emergency (ER) | payer MEDICAID ==
[~2021-10-13] VITALS: Ht 167.6 cm; Wt 61.3 kg
[~2021-10-13 08:29] MED LIST changes: -POTA10TA36 PO; +POTA10TA37 PO
[2021-10-13 09:09] LABS: CLARITY,URINE SLIGHTLY CLOUDY (Clear); COLOR,URINE YELLOW (Yellow); GLUCOSE, URINE NEGATIVE (Neg); KETONES,URINE NEGATIVE (Neg); LEUKOCYTE ESTERASE ,URINE NEGATIVE (Neg); NITRITES, URINE POSITIVE (Neg); OCCULT BLOOD,URINE NEGATIVE (Neg); PROTEIN,URINE NEGATIVE (Neg); URINE HCG NEGATIVE (NEG); UROBILINOGEN,URINE 0.2 E.U/dL (0.2-1.0)
[2021-10-13 09:10] LABS: UA COLLECTION TYPE CLN CATCH MIDSTREAM
[2021-10-13 09:15] LABS: AMORPHOUS URATES 1+; BACTERIA,URINE 4+ /HPF (Neg); RBC,URINE NONE SEEN /HPF (0-2); SQUAMOUS EPITHELIAL CELL,UR MODERATE /LPF (FEW)
[2021-10-13 10:01] LABS: BASOPHILS # (AUTO) 0.1 X10'3 (0-0.2); BASOPHILS % (AUTO) 1.3 % (0-1); EOSINOPHILS # (AUTO) 0.1 X10'3 (0-0.9); EOSINOPHILS % (AUTO) 1.9 % (0-6); HEMATOCRIT 40.6 % (35.0-45.0); HEMOGLOBIN 13.9 g/dl (12.0-16.0); LYMPHOCYTES # (AUTO) 1.8 X10'3 (1.1-4.8); LYMPHOCYTES % (AUTO) 29.4 % (21-51); MEAN CORPUSCULAR HEMOGLOBIN 31.2 PG (27.0-31.0); MEAN CORPUSCULAR HGB CONC 34.2 g/dL (33.0-36.5); MEAN CORPUSCULAR VOLUME 91.3 FL (78-98); MEAN PLATELET VOLUME 6.8 FL (7.4-10.4); MONOCYTES # (AUTO) 0.7 X10'3 (0-0.9); MONOCYTES % (AUTO) 11.6 % (2-12); NEUTROPHILS # (AUTO) 3.5 X10'3 (1.8-7.7); NEUTROPHILS % (AUTO) 55.8 % (42-75); PLATELET COUNT 355 X10'3 (140-440); RED BLOOD COUNT 4.45 X10'6 (4.20-5.60); WHITE BLOOD COUNT 6.2 X10'3 (4.5-11.0)
[2021-10-13 10:19] LABS: ALANINE AMINOTRANSFERASE 13 U/L (12-78); ALBUMIN 2.5 G/DL (3.4-5.0); ALBUMIN/GLOBULIN RATIO 0.4 (1.1-1.5); ALKALINE PHOSPHATASE 444 IU/L (46-116); ANION GAP 8 (8-16); ASPARTATE AMINO TRANSFERASE 37 U/L (10-37); BILIRUBIN,TOTAL 0.8 MG/DL (0.1-1.0); BLOOD UREA NITROGEN 3 MG/DL (7-18); BUN/CREATININE RATIO 4.4 (6.6-38.0); CALCIUM 8.6 MG/DL (8.5-10.1); CHLORIDE 107 MMOL/L (99-107); CREATININE 0.68 MG/DL (0.40-0.90); GLUCOSE 89 MG/DL (70-104); LIPASE 57 U/L (73-393); SODIUM 145 MMOL/L (135-145); TOTAL CARBON DIOXIDE 29.7 MMOL/L (24-32); TOTAL PROTEIN 8.5 G/DL (6.4-8.2); eGFR > 90 ML/MIN
[2021-10-13 10:26] LABS: POTASSIUM 2.9 MMOL/L (3.5-5.1)
[2021-10-13] MEDS ORDERED: potassium Cl 20 mEq SR tablet PO STA (10:52)
[2021-10-13] MEDS ORDERED: potassium Cl 10 mEq/100mL bag IV ONE (10:55)
[2021-10-13] MEDS ORDERED: LIDOcaine 1% W/epiNEPHrine 1:200,000 10ml vial IJ ONE (11:25)
[2021-10-13] MEDS ORDERED: LIDOcaine 1% w/epiNEPHrine 1:200,000 30ml vial IJ ONE (11:35)
[2021-10-13] MEDS ORDERED: CEPH500C2 PO (12:00)
[2021-10-13] MEDS ORDERED: SPIR50TA5 PO (12:00)
[2021-10-13 12:53] VITALS: BP 142/107
== END 2021-10-13 12:18 | disposition home or self-care (01) ==
LOC: ER 08:30
DX: R18.8 Other ascites (principal); N39.0 Urinary tract infection, site not specified; R10.84 Generalized abdominal pain; R14.0 Abdominal distension (gaseous); E87.6 Hypokalemia; Z87.440 Personal history of urinary (tract) infections; Z88.8 Allergy status to other drugs, medicaments and biological substances; Z79.2 Long term (current) use of antibiotics; Z79.899 Other long term (current) drug therapy
CPT/HCPCS: 36415; 49083; 80053; 81001; 81025; 83690; 85025; 85610; 87077; 87088; 87186; 93005; 99285

== ENCOUNTER 2023-09-20 19:04 | Inpatient (IN) | payer MEDICAID ==
[~2023-09-20] VITALS: Ht 170.2 cm; Wt 90.1 kg
[~2023-09-20 19:04] MED LIST changes: +POTA-206 PO; -POTA10TA37 PO
--- NOTE | 2023-09-20 19:42 | NUR ---
MSE COMPLETED BY DR SCHROEDER
[2023-09-20 19:46] LABS: BASOPHILS # (AUTO) 0.2 X10'3 (0-0.2); BASOPHILS % (AUTO) 0.9 % (0-1); EOSINOPHILS % (AUTO) 0.1 % (0-6); HEMATOCRIT 40.4 % (35.0-45.0); HEMOGLOBIN 13.7 g/dl (12.0-16.0); LYMPHOCYTES # (AUTO) 1.3 X10'3 (1.1-4.8); LYMPHOCYTES % (AUTO) 6.6 % (21-51); MEAN CORPUSCULAR HEMOGLOBIN 38.3 PG (27.0-31.0); MEAN CORPUSCULAR HGB CONC 33.9 g/dL (33.0-36.5); MEAN CORPUSCULAR VOLUME 112.8 FL (78-98); MEAN PLATELET VOLUME 8.6 FL (7.4-10.4); MONOCYTES # (AUTO) 1.3 X10'3 (0-0.9); MONOCYTES % (AUTO) 6.6 % (2-12); NEUTROPHILS # (AUTO) 16.9 X10'3 (1.8-7.7); NEUTROPHILS % (AUTO) 85.8 % (42-75); PLATELET COUNT 211 X10'3 (140-440); RED BLOOD COUNT 3.58 X10'6 (4.20-5.60); RED CELL DISTRIBUTION WIDTH 14.8 % (11.5-14.5); WHITE BLOOD COUNT 19.7 X10'3 (4.5-11.0)
[2023-09-20 20:01] LABS: ALANINE AMINOTRANSFERASE 29 U/L (12-78); ALBUMIN 2.3 G/DL (3.4-5.0); ANION GAP 17 (8-16); BILIRUBIN,TOTAL 24.6 MG/DL (0.1-1.0); BLOOD UREA NITROGEN 11 MG/DL (7-18); BUN/CREATININE RATIO 9.6 (10.0-20.0); CALCIUM 9.1 MG/DL (8.5-10.1); CHLORIDE 89 MMOL/L (99-107); CREATININE 1.15 MG/DL (0.40-0.90); SODIUM 133 MMOL/L (135-145); TOTAL CARBON DIOXIDE 27.4 MMOL/L (24-32); eCRCL 62 ML/MIN; eGFR 52 ML/MIN
[2023-09-20 20:02] LABS: ALKALINE PHOSPHATASE 196 IU/L (46-116); LIPASE 20 U/L (16-77)
[2023-09-20 20:18] LABS: APTT 34 SECONDS (22-32); PROTHROMBIN TIME 20.9 SECONDS (9.0-12.0)
[2023-09-20 20:26] LABS: PRO BRAIN NATRIURETIC PEPTIDE 1464 PG/ML (0-125)
[2023-09-20 20:28] LABS: ALBUMIN/GLOBULIN RATIO 0.4 (1.1-1.5); ASPARTATE AMINO TRANSFERASE 143 U/L (10-37); GLUCOSE 89 MG/DL (70-104); TOTAL PROTEIN 7.6 G/DL (6.4-8.2)
[2023-09-20 20:30] LABS: POTASSIUM 2.1 MMOL/L (3.5-5.1)
[2023-09-20] MEDS ORDERED: potassium Cl 40MEQ/1/2NS 520ml 520 ML IV ONE (20:35)
[2023-09-20 20:37] LABS: TOTAL CELLS COUNTED 100
--- NOTE | 2023-09-20 20:37 | NUR ---
LAB AT BEDSIDE TO DRAW SECOND SET OF BLOOD CULTURES.
[2023-09-20 20:38] LABS: ANISOCYTOSIS 1+; PLATELET ESTIMATE NORMAL
[2023-09-20 20:51] LABS: MAGNESIUM 1.7 MG/DL (1.5-2.4)
[2023-09-20 21:49] LABS: ACETAMINOPHEN < 2.0 UG/ML (10-30)
[2023-09-20] MEDS ORDERED: ondansetron/PF 4mg/2ml inj IV ONE (22:30)
[2023-09-20] MEDS ORDERED: normal saline 1000ml 1,000 ML IV ONE (23:15)
--- NOTE | 2023-09-20 23:32 | NUR ---
BEDSIDE COMMODE AT BEDSIDE FOR PATIENT. DENIES FURTHER NEEDS AT THIS TIME, SISTER AT BEDSIDE. CALL LIGHT WITHIN REACH.
[2023-09-21] VITALS (7 sets, daily range): BP systolic 80–102; BP diastolic 44–70; PULSE 89–105; RESP 15–20; TEMP 97.8–98.7; O2SAT 90–98
[2023-09-21] MEDS ORDERED: magnesium Cl slow-release 64mg tablet PO PRN (00:35)
[2023-09-21] MEDS ORDERED: magnesium 4gm in 100ml NS 100 ML IV PRN (00:35)
[2023-09-21] MEDS ORDERED: magnesium 2GM in 50ml NS 50 ML IV PRN (00:35)
[2023-09-21] MEDS ORDERED: potassium Cl 20 mEq SR tablet PO PRN (00:35)
[2023-09-21] MEDS ORDERED: magnesium hydroxide 30ml (MOM) UD suspension PO PRN (00:35)
[2023-09-21] MEDS ORDERED: morphine 2 MG/ML inj. syringe IV PRN ×2 (00:35)
[2023-09-21] MEDS ORDERED: mag hydrox/Alum hydrox/simeth 30ml oral suspension PO PRN (00:35)
[2023-09-21] MEDS ORDERED: ondansetron/PF 4mg/2ml inj IV PRN (00:35)
[2023-09-21] MEDS ORDERED: albumin (Human) 5% 250ml 250 ML IV ONE (00:55)
[2023-09-21] MEDS ORDERED: magnesium 2GM in 50ml NS 50 ML IV ONE (01:00)
[2023-09-21] MEDS ORDERED: CefTRIAXone/D5W-Rocephin 1gm 50 ML IV ONE ×2 (01:30→10:20)
[2023-09-21] MEDS: POTASSIUM BICARB 20meq eff tab 20 MEQ TABLET.EFF PO SCH (01:32)
[2023-09-21 01:38] LABS: ANION GAP 15 (8-16); BLOOD UREA NITROGEN 14 MG/DL (7-18); BUN/CREATININE RATIO 12.7 (10.0-20.0); CHLORIDE 93 MMOL/L (99-107); SODIUM 133 MMOL/L (135-145)
[2023-09-21 01:39] LABS: ALBUMIN 1.8 G/DL (3.4-5.0); CALCIUM 8.5 MG/DL (8.5-10.1); eCRCL 65 ML/MIN; eGFR 54 ML/MIN
[2023-09-21 01:41] LABS: GLUCOSE 89 MG/DL (70-104)
[2023-09-21 01:42] LABS: POTASSIUM 2.3 MMOL/L (3.5-5.1)
[2023-09-21 01:50] LABS: ALBUMIN,BODY FLUID 0.9 G/DL; LDH,BODY FLUID 76 U/L; TOTAL PROTEIN,BODY FLUID 2.1 G/DL
[2023-09-21 02:32] LABS: BF RBC COUNT 1400 /CU MM; BF WBC COUNT 5000 /CU MM (0-1000); BFAPPEAR CLOUDY; BFCOLOR YELLOW; BFSOURCE ASCITES FLD; BFVOLUME 20 ML
[2023-09-21 02:33] LABS: LYMPHOCYTES,BODY FLUID 2 %; NEUTROPHILS,BODY FLUID 82 %
[2023-09-21 02:34] LABS: BF MESOTHELIAL CELLS FEW; MONOCYTES,BODY FLUID 16 %
[2023-09-21] MEDS: potassium Cl 40MEQ/1/2NS 520ml 520 ML IV PRN ×2 (02:59→22:32)
--- NOTE | 2023-09-21 03:06 | NUR ---
PARACENTESIS COMPLETED: 5 LITERS REMOVED.
--- NOTE | 2023-09-21 03:43 | NUR ---
PATIENT AMBULATORY TO RESTROOM INDEPENDENTLY. URINE SAMPLE OBTAINED AND SENT TO LAB. WARM BLANKETS PROVIDED FOR PATIENT. RESPIRATIONS EVEN AND UNLABORED, NO ACUTE DISTRESS NOTED AT THIS TIME, CALL LIGHT WITHIN REACH.
[2023-09-21 03:51] LABS: URINE HCG NEGATIVE (NEG)
[2023-09-21 03:52] LABS: MAGNESIUM 1.7 MG/DL (1.5-2.4)
[2023-09-21 03:55] LABS: UA COLLECTION TYPE CLN CATCH MIDSTREAM
[2023-09-21 03:56] LABS: CLARITY,URINE TURBID (Clear); COLOR,URINE GREEN (Yellow)
[2023-09-21 04:21] LABS: BACTERIA,URINE 4+ /HPF (Neg); MUCUS STRANDS FEW /LPF (Neg); RBC,URINE 0-2 /HPF (0-2); SQUAMOUS EPITHELIAL CELL,UR FEW /LPF (FEW); TRANSITIONAL EPI CELLS,URINE FEW /HPF
[2023-09-21 04:22] LABS: RENAL CELLS, URINE FEW /HPF
[2023-09-21 04:32] LABS: POTASSIUM 2.2 MMOL/L (3.5-5.1)
--- NOTE | 2023-09-21 05:39 | NUR ---
PATIENT RESTING IN BED WITH EYES CLOSED, RESPIRATIONS EVEN AND UNLABORED, NO ACUTE DISTRESS NOTED AT THIS TIME. CALL LIGHT WITHIN REACH.
[2023-09-21] MEDS ORDERED: haloperidol lactate 5mg/ml inj IM PRN ×3 (07:55)
[2023-09-21] MEDS ORDERED: haloperidol 5mg tablet PO PRN ×2 (07:55)
[2023-09-21] MEDS ORDERED: LORazepam 2 mg/ml vial IV PRN ×4 (07:55)
[2023-09-21] MEDS ORDERED: LORazepam 1 MG tablet PO PRN (07:55)
[2023-09-21] MEDS: K and/or MAG REPLACEMENT MC SCH ×2 (08:00→20:00)
[2023-09-21] MEDS ORDERED: CefTRIAXone/D5W-Rocephin 1gm 50 ML IV SCH (08:00)
[2023-09-21] MEDS: docusate sod 100mg capsule PO SCH ×2 (08:00→20:12)
[2023-09-21] MEDS: spironolactone 25 MG tablet PO SCH (08:30)
--- NOTE | 2023-09-21 08:47 | NUR ---
ORDERS FOR LACTIC ACID REDRAW PUT IN PER PROTOCOL. ORDERS FOR PROCALCITONIN AND NORMAL SALINE AT 100ML/HR PUT IN PER DR. MCDONNELL.
[2023-09-21] MEDS: normal saline 1000ml 1,000 ML IV SCH ×2 (09:39→20:18)
[2023-09-21] MEDS ORDERED: lactulose 20gm/30ml cup PO SCH (11:15)
[2023-09-21] MEDS: vancomycin/NS 1 GM ADD-VANTAGE 250 ML IV SCH (12:13)
[2023-09-21] MEDS: lactulose 20gm/30ml cup PO SCH (16:38)
[2023-09-21] MEDS: Ursodiol 300mg capsule PO SCH (20:00)
[2023-09-21] MEDS: ibuprofen tablet 400 MG TABLET PO PRN (20:11)
[2023-09-21] MEDS: rifaximin 550mg tablet PO SCH (20:12)
[2023-09-22] VITALS (7 sets, daily range): BP systolic 73–93; BP diastolic 39–64; PULSE 75–98; RESP 16–20; TEMP 97.2–98.1; O2SAT 95–99
[2023-09-22] MEDS: vancomycin/NS 1 GM ADD-VANTAGE 250 ML IV SCH ×2 (01:03→12:10)
[2023-09-22] MEDS: POTASSIUM BICARB 20meq eff tab 20 MEQ TABLET.EFF PO SCH (01:10)
--- NOTE | 2023-09-22 04:00 | NUR ---
I AGREE WITH ASSISTIVE TECHNOLOGY SPECIALIST'S ASSESSMENT
[2023-09-22] MEDS: normal saline 1000ml 1,000 ML IV SCH ×2 (05:12→15:09)
[2023-09-22 06:18] LABS: EOSINOPHILS # (AUTO) 0.2 X10'3 (0-0.9); HEMOGLOBIN 9.6 g/dl (12.0-16.0); MEAN PLATELET VOLUME 8.3 FL (7.4-10.4); MONOCYTES # (AUTO) 1.1 X10'3 (0-0.9); NEUTROPHILS # (AUTO) 10.8 X10'3 (1.8-7.7); RED BLOOD COUNT 2.44 X10'6 (4.20-5.60)
[2023-09-22 06:20] LABS: BASOPHILS % (AUTO) 0.1 % (0-1); EOSINOPHILS % (AUTO) 1.5 % (0-6); HEMATOCRIT 27.7 % (35.0-45.0); LYMPHOCYTES # (AUTO) 1.5 X10'3 (1.1-4.8); LYMPHOCYTES % (AUTO) 11.2 % (21-51); MEAN CORPUSCULAR HEMOGLOBIN 39.2 PG (27.0-31.0); MEAN CORPUSCULAR HGB CONC 34.6 g/dL (33.0-36.5); MEAN CORPUSCULAR VOLUME 113.5 FL (78-98); NEUTROPHILS % (AUTO) 79.2 % (42-75); PLATELET COUNT 127 X10'3 (140-440); RED CELL DISTRIBUTION WIDTH 14.6 % (11.5-14.5); WHITE BLOOD COUNT 13.6 X10'3 (4.5-11.0)
[2023-09-22 06:41] LABS: ALANINE AMINOTRANSFERASE 24 U/L (12-78); ALBUMIN 1.6 G/DL (3.4-5.0); ALKALINE PHOSPHATASE 104 IU/L (46-116); ANION GAP 7 (8-16); BLOOD UREA NITROGEN 24 MG/DL (7-18); CALCIUM 7.9 MG/DL (8.5-10.1); CHLORIDE 95 MMOL/L (99-107); MAGNESIUM 1.6 MG/DL (1.5-2.4); SODIUM 131 MMOL/L (135-145); TOTAL CARBON DIOXIDE 29.1 MMOL/L (24-32)
[2023-09-22] MEDS ORDERED: normal saline 500ml IV soln 500 ML IV ONE (06:55)
[2023-09-22 06:56] LABS: ASPARTATE AMINO TRANSFERASE 92 U/L (10-37)
[2023-09-22 06:58] LABS: ALBUMIN/GLOBULIN RATIO 0.5 (1.1-1.5); BUN/CREATININE RATIO 15.5 (10.0-20.0); CREATININE 1.55 MG/DL (0.40-0.90); PHOSPHORUS 1.9 MG/DL (2.3-4.5); TOTAL PROTEIN 4.9 G/DL (6.4-8.2); eCRCL 46 ML/MIN; eGFR 37 ML/MIN
[2023-09-22 06:59] LABS: GLUCOSE 93 MG/DL (70-104)
[2023-09-22 07:05] LABS: POTASSIUM 2.4 MMOL/L (3.5-5.1)
[2023-09-22] MEDS: potassium Cl 20 mEq SR tablet PO PRN ×2 (07:27→16:52)
[2023-09-22] MEDS: Ursodiol 300mg capsule PO SCH ×2 (07:49→20:52)
[2023-09-22] MEDS: lactulose 20gm/30ml cup PO SCH ×3 (07:50→20:55)
[2023-09-22] MEDS: docusate sod 100mg capsule PO SCH ×3 (08:00→20:50)
[2023-09-22] MEDS: rifaximin 550mg tablet PO SCH ×2 (08:00→20:51)
[2023-09-22] MEDS: K and/or MAG REPLACEMENT MC SCH ×2 (08:00→20:00)
[2023-09-22] MEDS ORDERED: CefTRIAXone 2gm/D5W 50ml BAG 50 ML IV SCH (08:00)
[2023-09-22] MEDS: spironolactone 25 MG tablet PO SCH (08:09)
[2023-09-22] MEDS: ibuprofen tablet 400 MG TABLET PO PRN ×2 (10:46→15:03)
[2023-09-22] MEDS: folic acid 1mg tablet PO SCH (10:46)
[2023-09-22] MEDS: multivitamins, therapeutics tablet PO SCH (10:46)
[2023-09-22] MEDS ORDERED: pantoprazole 40mg Tablet.DR PO STA (12:10)
[2023-09-22] MEDS: piperacillin/tazo 3.375gm/50ml 50 ML IV SCH ×3 (14:20→23:50)
[2023-09-22] MEDS ORDERED: sodium phosphate inj. 30 MMOL in dextrose 5%-water 250 ML IV ONE (14:40)
--- NOTE | 2023-09-22 14:58 | NUR ---
ORDERS FOR HEMOGRAM Q4HR X 6 TIMES AND NEUTRO-PHOS PACKET PUT IN PER DR. MCDONNELL.
[2023-09-22 16:24] LABS: HEMATOCRIT 30.8 % (35.0-45.0); HEMOGLOBIN 10.7 g/dl (12.0-16.0); MEAN CORPUSCULAR HGB CONC 34.5 g/dL (33.0-36.5); MEAN CORPUSCULAR VOLUME 112.9 FL (78-98); MEAN PLATELET VOLUME 8.4 FL (7.4-10.4); PLATELET COUNT 143 X10'3 (140-440); RED BLOOD COUNT 2.73 X10'6 (4.20-5.60); RED CELL DISTRIBUTION WIDTH 14.5 % (11.5-14.5); WHITE BLOOD COUNT 13.4 X10'3 (4.5-11.0)
[2023-09-22 16:32] LABS: MAGNESIUM 2.9 MG/DL (1.5-2.4)
[2023-09-22 16:34] LABS: POTASSIUM 2.4 MMOL/L (3.5-5.1)
[2023-09-22 16:37] LABS: % IRON SATURATION 33 % (11-46); IRON 26 UG/DL (49-151); TOTAL IRON BINDING CAPACITY 78 UG/DL (259-388)
[2023-09-22] MEDS ORDERED: sodium ferric gluc complex inj 125 MG in normal saline 100ml IV soln 100 ML IV ONE (19:55)
[2023-09-22] MEDS: thiamine 100mg tablet PO SCH (20:49)
--- NOTE | 2023-09-22 21:00 | NUR ---
D DUR 40 MEQ GIVEN AT 2100
[2023-09-22] MEDS: Neutra Phos packet PO SCH (21:01)
[2023-09-22] MEDS ORDERED: VANCOMYCIN LEVEL IV ONE (23:30)
[2023-09-23] VITALS (8 sets, daily range): BP systolic 91–111; BP diastolic 56–77; PULSE 83–88; RESP 16–20; TEMP 97.2–98; O2SAT 94–100
[2023-09-23] MEDS: vancomycin/NS 1 GM ADD-VANTAGE 250 ML IV SCH
[2023-09-23] MEDS: POTASSIUM BICARB 20meq eff tab 20 MEQ TABLET.EFF PO SCH (01:10)
[2023-09-23 01:14] LABS: POTASSIUM 2.7 MMOL/L (3.5-5.1)
[2023-09-23 01:15] LABS: VANCOMYCIN,TROUGH 31.4 ug/mL (10.0-20.0)
[2023-09-23] MEDS: potassium Cl 20 mEq SR tablet PO PRN ×4 (01:22→19:45)
--- NOTE | 2023-09-23 01:25 | NUR ---
POTASSIUM LEVEL 2.7, VANCO TROUGH 31.4, DR HANCOCK NOTIFIED, PHARMACY NOTIFIED FOR DOSE ADJUSTMENT
[2023-09-23] MEDS: ibuprofen tablet 400 MG TABLET PO PRN ×2 (02:34→17:22)
[2023-09-23] MEDS: normal saline 1000ml 1,000 ML IV SCH ×2 (04:49→13:16)
--- NOTE | 2023-09-23 06:32 | NUR ---
report given and plan of care reviewed with SAMANTHA Du
--- NOTE | 2023-09-23 06:45 | NUR ---
Patient in room PCU 3012I. I have received report from SAMANTHA Anderson and had the opportunity to ask questions and assume patient care.
[2023-09-23] MEDS: pantoprazole 40mg Tablet.DR PO SCH (07:55)
[2023-09-23] MEDS ORDERED: LORazepam 1 MG tablet PO PRN (07:55)
[2023-09-23] MEDS ORDERED: LORazepam 2 mg/ml vial IV PRN (07:55)
[2023-09-23] MEDS: piperacillin/tazo 3.375gm/50ml 50 ML IV SCH ×2 (07:55→17:22)
[2023-09-23] MEDS: Ursodiol 300mg capsule PO SCH ×2 (07:56→19:46)
[2023-09-23 07:57] LABS: ALANINE AMINOTRANSFERASE 34 U/L (12-78); ALBUMIN 1.9 G/DL (3.4-5.0); ALKALINE PHOSPHATASE 127 IU/L (46-116); ANION GAP 9 (8-16); BILIRUBIN,TOTAL 22.1 MG/DL (0.1-1.0); BLOOD UREA NITROGEN 24 MG/DL (7-18); BUN/CREATININE RATIO 15.1 (10.0-20.0); CHLORIDE 98 MMOL/L (99-107); CREATININE 1.59 MG/DL (0.40-0.90); MAGNESIUM 2.6 MG/DL (1.5-2.4); SODIUM 132 MMOL/L (135-145); TOTAL CARBON DIOXIDE 25.1 MMOL/L (24-32); eCRCL 45 ML/MIN; eGFR 36 ML/MIN
[2023-09-23] MEDS: lactulose 20gm/30ml cup PO SCH ×2 (07:57→19:46)
[2023-09-23] MEDS: docusate sod 100mg capsule PO SCH ×2 (07:57→19:46)
[2023-09-23] MEDS: Neutra Phos packet PO SCH ×3 (07:58→19:45)
[2023-09-23] MEDS: folic acid 1mg tablet PO SCH (07:58)
[2023-09-23] MEDS: thiamine 100mg tablet PO SCH ×2 (07:58→19:45)
[2023-09-23 07:59] LABS: ALBUMIN/GLOBULIN RATIO 0.5 (1.1-1.5); ASPARTATE AMINO TRANSFERASE 127 U/L (10-37); BASOPHILS % (AUTO) 0.2 % (0-1); EOSINOPHILS # (AUTO) 0.4 X10'3 (0-0.9); EOSINOPHILS % (AUTO) 2.6 % (0-6); GLUCOSE 63 MG/DL (70-104); HEMATOCRIT 31.2 % (35.0-45.0); HEMOGLOBIN 10.7 g/dl (12.0-16.0); LYMPHOCYTES # (AUTO) 1.8 X10'3 (1.1-4.8); LYMPHOCYTES % (AUTO) 13.2 % (21-51); MEAN CORPUSCULAR HEMOGLOBIN 38.9 PG (27.0-31.0); MEAN CORPUSCULAR HGB CONC 34.1 g/dL (33.0-36.5); MEAN PLATELET VOLUME 8.4 FL (7.4-10.4); MONOCYTES # (AUTO) 1.6 X10'3 (0-0.9); MONOCYTES % (AUTO) 11.5 % (2-12); NEUTROPHILS # (AUTO) 9.8 X10'3 (1.8-7.7); NEUTROPHILS % (AUTO) 72.5 % (42-75); PHOSPHORUS 3.1 MG/DL (2.3-4.5); PLATELET COUNT 145 X10'3 (140-440); RED BLOOD COUNT 2.74 X10'6 (4.20-5.60); RED CELL DISTRIBUTION WIDTH 14.7 % (11.5-14.5); TOTAL PROTEIN 5.8 G/DL (6.4-8.2); WHITE BLOOD COUNT 13.5 X10'3 (4.5-11.0)
[2023-09-23] MEDS: rifaximin 550mg tablet PO SCH ×2 (07:59→19:45)
[2023-09-23 08:00] LABS: POTASSIUM 2.6 MMOL/L (3.5-5.1)
[2023-09-23] MEDS: K and/or MAG REPLACEMENT MC SCH ×2 (08:24→20:00)
[2023-09-23] MEDS: multivitamins, therapeutics tablet PO SCH (08:27)
[2023-09-23] MEDS: spironolactone 50 MG tablet PO SCH (08:28)
[2023-09-23] MEDS ORDERED: VANCOMYCIN LEVEL IV ONE (14:00)
[2023-09-23 15:58] LABS: HEMATOCRIT 35.9 % (35.0-45.0); HEMOGLOBIN 11.7 g/dl (12.0-16.0); MEAN CORPUSCULAR HEMOGLOBIN 38.3 PG (27.0-31.0); MEAN CORPUSCULAR HGB CONC 32.7 g/dL (33.0-36.5); MEAN CORPUSCULAR VOLUME 117.2 FL (78-98); MEAN PLATELET VOLUME 8.5 FL (7.4-10.4); PLATELET COUNT 142 X10'3 (140-440); RED BLOOD COUNT 3.06 X10'6 (4.20-5.60); WHITE BLOOD COUNT 13.9 X10'3 (4.5-11.0)
--- NOTE | 2023-09-23 17:45 | NUR ---
Student documentation: I have reviewed and agree with all assessment performed and documented by JAMEY BLAIR.
--- NOTE | 2023-09-23 18:14 | NUR ---
Problems reprioritized. Patient report given, questions answered & plan of care reviewed with ERICK Irene.
[2023-09-24] MEDS: piperacillin/tazo 3.375gm/50ml 50 ML IV SCH ×3 (00:49→16:23)
[2023-09-24] MEDS ORDERED: potassium Cl 20 mEq SR tablet PO STA (01:09)
[2023-09-24] MEDS: POTASSIUM BICARB 20meq eff tab 20 MEQ TABLET.EFF PO SCH (01:10)
[2023-09-24] MEDS: acetaminophen 325mg tablet PO PRN ×3 (01:16→23:51)
[2023-09-24 02:00] VITALS: BP 105/75; PULSE 87; RESP 18; TEMP 97.8; O2SAT 99
--- NOTE | 2023-09-24 06:30 | NUR ---
Patient in room PCU 3015. I have received report from Teto SUAREZ and had the opportunity to ask questions and assume patient care.
[2023-09-24 06:43] LABS: EOSINOPHILS # (AUTO) 0.3 X10'3 (0-0.9); HEMATOCRIT 33.3 % (35.0-45.0); HEMOGLOBIN 11.3 g/dl (12.0-16.0); RED BLOOD COUNT 2.92 X10'6 (4.20-5.60); RED CELL DISTRIBUTION WIDTH 14.6 % (11.5-14.5); WHITE BLOOD COUNT 12.6 X10'3 (4.5-11.0)
[2023-09-24 06:45] LABS: BASOPHILS % (AUTO) 0.3 % (0-1); EOSINOPHILS % (AUTO) 2.3 % (0-6); LYMPHOCYTES # (AUTO) 1.9 X10'3 (1.1-4.8); LYMPHOCYTES % (AUTO) 14.7 % (21-51); MEAN CORPUSCULAR HEMOGLOBIN 38.6 PG (27.0-31.0); MEAN CORPUSCULAR HGB CONC 33.9 g/dL (33.0-36.5); MEAN PLATELET VOLUME 8.3 FL (7.4-10.4); MONOCYTES # (AUTO) 1.7 X10'3 (0-0.9); MONOCYTES % (AUTO) 13.1 % (2-12); NEUTROPHILS # (AUTO) 8.8 X10'3 (1.8-7.7); NEUTROPHILS % (AUTO) 69.6 % (42-75); PLATELET COUNT 151 X10'3 (140-440)
[2023-09-24 06:48] LABS: ALANINE AMINOTRANSFERASE 38 U/L (12-78); ALKALINE PHOSPHATASE 138 IU/L (46-116); ANION GAP 12 (8-16); BILIRUBIN,TOTAL 23.5 MG/DL (0.1-1.0); BLOOD UREA NITROGEN 26 MG/DL (7-18); CALCIUM 8.4 MG/DL (8.5-10.1); CHLORIDE 100 MMOL/L (99-107); MAGNESIUM 2.5 MG/DL (1.5-2.4); SODIUM 133 MMOL/L (135-145); TOTAL CARBON DIOXIDE 21.4 MMOL/L (24-32)
[2023-09-24 06:56] LABS: ALBUMIN/GLOBULIN RATIO 0.5 (1.1-1.5); ASPARTATE AMINO TRANSFERASE 105 U/L (10-37); BUN/CREATININE RATIO 14.3 (10.0-20.0); CREATININE 1.82 MG/DL (0.40-0.90); GLUCOSE 73 MG/DL (70-104); PHOSPHORUS 3.6 MG/DL (2.3-4.5); POTASSIUM 3.7 MMOL/L (3.5-5.1); TOTAL PROTEIN 6.1 G/DL (6.4-8.2); eCRCL 39 ML/MIN; eGFR 30 ML/MIN
[2023-09-24 07:00] VITALS: BP 93/65; PULSE 87; RESP 18; TEMP 97.8; O2SAT 100
[2023-09-24] MEDS: docusate sod 100mg capsule PO SCH ×2 (08:00→19:48)
[2023-09-24] MEDS: K and/or MAG REPLACEMENT MC SCH ×2 (08:00→20:00)
[2023-09-24 08:18] LABS: TOTAL CELLS COUNTED 100
[2023-09-24 08:19] LABS: PLATELET ESTIMATE NORMAL
[2023-09-24] MEDS: pantoprazole 40mg Tablet.DR PO SCH (08:21)
[2023-09-24] MEDS: folic acid 1mg tablet PO SCH (08:21)
[2023-09-24] MEDS: Ursodiol 300mg capsule PO SCH ×2 (08:21→19:47)
[2023-09-24] MEDS: multivitamins, therapeutics tablet PO SCH (08:22)
[2023-09-24] MEDS: ascorbic acid 500mg tablet PO SCH ×2 (08:22→17:14)
[2023-09-24] MEDS: thiamine 100mg tablet PO SCH ×2 (08:22→19:48)
[2023-09-24] MEDS: rifaximin 550mg tablet PO SCH ×2 (08:22→19:47)
[2023-09-24] MEDS: Neutra Phos packet PO SCH ×3 (08:23→19:47)
[2023-09-24] MEDS: spironolactone 50 MG tablet PO SCH (08:23)
[2023-09-24] MEDS: ferrous sulfate 325mg tablet PO SCH ×2 (08:23→19:47)
[2023-09-24] MEDS ORDERED: PERFLUTREN PROTEIN-A MICROSPHR (Optison) 0.22 MG/ML 3ML VIAL IV ONE (08:25)
[2023-09-24] MEDS ORDERED: VANCOMYCIN LEVEL IV ONE (10:00)
[2023-09-24 11:00] VITALS: BP 100/55; PULSE 83; RESP 21; TEMP 97.6; O2SAT 94
--- NOTE | 2023-09-24 13:20 | NUR ---
Called critical [facility] to Dr Wells. No new orders noted at this time.
[2023-09-24 15:00] VITALS: BP 98/62; PULSE 84; RESP 19; TEMP 97.5; O2SAT 97
--- NOTE | 2023-09-24 16:32 | NUR ---
I agreed with SEWER LINE PHOTO INSPECTOR's assessment.
--- NOTE | 2023-09-24 17:38 | NUR ---
Dr Wells called and and gave orders for a STAT Occult blood stool.
--- NOTE | 2023-09-24 18:18 | NUR ---
Problems reprioritized. Patient report given, questions answered & plan of care reviewed with Teto SUAREZ.
[2023-09-24] MEDS: lactulose 20gm/30ml cup PO SCH (19:48)
[2023-09-24 23:00] VITALS: BP 109/72; PULSE 97; RESP 16; TEMP 97.8; O2SAT 97
[2023-09-24 23:22] LABS: OCCULT BLOOD STOOL NEGATIVE (Neg)
[2023-09-25] MEDS: POTASSIUM BICARB 20meq eff tab 20 MEQ TABLET.EFF PO SCH (01:10)
[2023-09-25] MEDS: piperacillin/tazo 3.375gm/50ml 50 ML IV SCH ×3 (02:01→16:25)
--- NOTE | 2023-09-25 06:33 | NUR ---
Patient in room PCU 3015. I have received report from Teto SUAREZ and had the opportunity to ask questions and assume patient care.
[2023-09-25 07:00] VITALS: BP 93/60; PULSE 95; RESP 20; TEMP 97.8; O2SAT 98
[2023-09-25] MEDS ORDERED: LORazepam 2 mg/ml vial IV PRN (07:55)
[2023-09-25] MEDS ORDERED: LORazepam 1 MG tablet PO PRN (07:55)
[2023-09-25] MEDS: K and/or MAG REPLACEMENT MC SCH ×2 (08:00→20:00)
[2023-09-25] MEDS: docusate sod 100mg capsule PO SCH ×2 (08:00→20:00)
[2023-09-25] MEDS: spironolactone 50 MG tablet PO SCH (08:30)
[2023-09-25] MEDS: folic acid 1mg tablet PO SCH (08:41)
[2023-09-25] MEDS: ferrous sulfate 325mg tablet PO SCH ×2 (08:41→20:22)
[2023-09-25] MEDS: multivitamins, therapeutics tablet PO SCH (08:41)
[2023-09-25] MEDS: pantoprazole 40mg Tablet.DR PO SCH (08:41)
[2023-09-25] MEDS: Ursodiol 300mg capsule PO SCH ×2 (08:41→20:22)
[2023-09-25] MEDS: rifaximin 550mg tablet PO SCH ×2 (08:42→20:22)
[2023-09-25] MEDS: Neutra Phos packet PO SCH ×3 (08:42→20:22)
[2023-09-25] MEDS: thiamine 100mg tablet PO SCH ×2 (08:42→20:22)
[2023-09-25] MEDS: ascorbic acid 500mg tablet PO SCH ×2 (08:42→18:05)
[2023-09-25] MEDS: lactulose 20gm/30ml cup PO SCH ×2 (08:46→20:23)
[2023-09-25 08:51] LABS: BASOPHILS # (AUTO) 0.1 X10'3 (0-0.2); BASOPHILS % (AUTO) 0.6 % (0-1); EOSINOPHILS # (AUTO) 0.3 X10'3 (0-0.9); EOSINOPHILS % (AUTO) 2.3 % (0-6); HEMATOCRIT 34.1 % (35.0-45.0); HEMOGLOBIN 11.4 g/dl (12.0-16.0); LYMPHOCYTES # (AUTO) 1.9 X10'3 (1.1-4.8); LYMPHOCYTES % (AUTO) 13.3 % (21-51); MEAN CORPUSCULAR HEMOGLOBIN 37.8 PG (27.0-31.0); MEAN CORPUSCULAR HGB CONC 33.3 g/dL (33.0-36.5); MEAN CORPUSCULAR VOLUME 113.4 FL (78-98); MEAN PLATELET VOLUME 8.7 FL (7.4-10.4); MONOCYTES # (AUTO) 1.6 X10'3 (0-0.9); MONOCYTES % (AUTO) 10.9 % (2-12); NEUTROPHILS # (AUTO) 10.5 X10'3 (1.8-7.7); NEUTROPHILS % (AUTO) 72.9 % (42-75); PLATELET COUNT 163 X10'3 (140-440); RED BLOOD COUNT 3.01 X10'6 (4.20-5.60); RED CELL DISTRIBUTION WIDTH 14.6 % (11.5-14.5); WHITE BLOOD COUNT 14.4 X10'3 (4.5-11.0)
[2023-09-25 08:58] LABS: APTT 39 SECONDS (22-32); INR 1.8 INR; PROTHROMBIN TIME 18.3 SECONDS (9.0-12.0)
[2023-09-25 09:32] LABS: ALANINE AMINOTRANSFERASE 36 U/L (12-78); ALKALINE PHOSPHATASE 134 IU/L (46-116); ANION GAP 12 (8-16); BILIRUBIN,TOTAL 22.8 MG/DL (0.1-1.0); BLOOD UREA NITROGEN 27 MG/DL (7-18); CALCIUM 8.5 MG/DL (8.5-10.1); CHLORIDE 97 MMOL/L (99-107); MAGNESIUM 2.2 MG/DL (1.5-2.4); SODIUM 129 MMOL/L (135-145); TOTAL CARBON DIOXIDE 20.1 MMOL/L (24-32)
[2023-09-25 09:34] LABS: ALBUMIN/GLOBULIN RATIO 0.5 (1.1-1.5); ASPARTATE AMINO TRANSFERASE 97 U/L (10-37); BUN/CREATININE RATIO 12.2 (10.0-20.0); CREATININE 2.22 MG/DL (0.40-0.90); GLUCOSE 83 MG/DL (70-104); PHOSPHORUS 5.2 MG/DL (2.3-4.5); POTASSIUM 4.3 MMOL/L (3.5-5.1); TOTAL PROTEIN 6.3 G/DL (6.4-8.2); eCRCL 32 ML/MIN; eGFR 24 ML/MIN
[2023-09-25] MEDS: normal saline 1000ml 1,000 ML IV SCH (09:55)
[2023-09-25 10:16] VITALS: BP 96/64; PULSE 84; RESP 16; O2SAT 98
[2023-09-25 11:00] VITALS: BP_SYST 103; BP_SYST 91; BP_DIAS 61; BP_DIAS 66; PULSE 82; PULSE 85; RESP 17; RESP 18; TEMP 97.4; O2SAT 95; O2SAT 96
[2023-09-25] MEDS ORDERED: albumin (human) 25% 100 ML IV solution IV ONE ×2 (11:45→12:15)
--- NOTE | 2023-09-25 12:42 | NUR ---
Spoke with Dr Wells about 2 orders for albumin. gave order to LES Hood's order and continue with his order.
[2023-09-25] MEDS: predniSONE 20 mg tablet PO SCH (13:17)
[2023-09-25 15:00] VITALS: BP 95/65; PULSE 85; RESP 17; TEMP 97.5; O2SAT 98
--- NOTE | 2023-09-25 15:33 | NUR ---
AGREE WITH PLASTER FOREMAN AM ASSESSMENT
[2023-09-25 18:00] VITALS: BP 93/60; PULSE 81; RESP 18; TEMP 97.7; O2SAT 99
--- NOTE | 2023-09-25 18:19 | NUR ---
Problems reprioritized. Patient report given, questions answered & plan of care reviewed with Teto SUAREZ.
[2023-09-25 20:00] VITALS: RESP 18; O2SAT 99
[2023-09-26] MEDS: piperacillin/tazo 3.375gm/50ml 50 ML IV SCH ×2 (00:33→08:34)
[2023-09-26] MEDS: POTASSIUM BICARB 20meq eff tab 20 MEQ TABLET.EFF PO SCH (01:03)
--- NOTE | 2023-09-26 01:09 | NUR ---
I agree with all assessments and charting by Teto SUAREZ.
[2023-09-26 02:00] VITALS: BP 100/64; PULSE 86; RESP 16; TEMP 98.5; O2SAT 94
[2023-09-26 07:00] VITALS: BP 99/67; PULSE 99; RESP 16; TEMP 97.5; O2SAT 100
[2023-09-26] MEDS ORDERED: VANCOMYCIN LEVEL IV ONE (07:00)
[2023-09-26] MEDS ORDERED: VANCOMYCIN LEVEL IV SCH (07:00)
[2023-09-26 07:28] LABS: BASOPHILS # (AUTO) 0.1 X10'3 (0-0.2); BASOPHILS % (AUTO) 0.8 % (0-1); EOSINOPHILS % (AUTO) 0 % (0-6); HEMOGLOBIN 11.2 g/dl (12.0-16.0); LYMPHOCYTES % (AUTO) 7.7 % (21-51); MEAN CORPUSCULAR HEMOGLOBIN 38.6 PG (27.0-31.0); MEAN CORPUSCULAR HGB CONC 33.9 g/dL (33.0-36.5); MEAN CORPUSCULAR VOLUME 114.1 FL (78-98); MEAN PLATELET VOLUME 8.9 FL (7.4-10.4); MONOCYTES # (AUTO) 0.5 X10'3 (0-0.9); MONOCYTES % (AUTO) 4.2 % (2-12); NEUTROPHILS # (AUTO) 10.8 X10'3 (1.8-7.7); NEUTROPHILS % (AUTO) 87.3 % (42-75); PLATELET COUNT 170 X10'3 (140-440); RED CELL DISTRIBUTION WIDTH 14.6 % (11.5-14.5); WHITE BLOOD COUNT 12.4 X10'3 (4.5-11.0)
[2023-09-26 07:35] LABS: APTT 42 SECONDS (22-32); INR 1.7 INR
[2023-09-26 07:54] LABS: ALANINE AMINOTRANSFERASE 35 U/L (12-78); ALBUMIN 2.6 G/DL (3.4-5.0); ALKALINE PHOSPHATASE 119 IU/L (46-116); ANION GAP 13 (8-16); BILIRUBIN,TOTAL 21.5 MG/DL (0.1-1.0); BLOOD UREA NITROGEN 27 MG/DL (7-18); CALCIUM 8.7 MG/DL (8.5-10.1); CHLORIDE 97 MMOL/L (99-107); SODIUM 129 MMOL/L (135-145); TOTAL CARBON DIOXIDE 18.7 MMOL/L (24-32)
[2023-09-26 07:56] LABS: PLATELET ESTIMATE NORMAL; TOTAL CELLS COUNTED 100
[2023-09-26 07:57] LABS: ALBUMIN/GLOBULIN RATIO 0.6 (1.1-1.5); ASPARTATE AMINO TRANSFERASE 113 U/L (10-37); BUN/CREATININE RATIO 16.2 (10.0-20.0); CREATININE 1.67 MG/DL (0.40-0.90); GLUCOSE 97 MG/DL (70-104); PHOSPHORUS 5.6 MG/DL (2.3-4.5); POTASSIUM 5.3 MMOL/L (3.5-5.1); TOTAL PROTEIN 6.8 G/DL (6.4-8.2); eCRCL 43 ML/MIN; eGFR 34 ML/MIN
[2023-09-26] MEDS: normal saline 1000ml 1,000 ML IV SCH (08:00)
[2023-09-26] MEDS: K and/or MAG REPLACEMENT MC SCH (08:00)
[2023-09-26] MEDS: docusate sod 100mg capsule PO SCH (08:00)
[2023-09-26] MEDS: spironolactone 50 MG tablet PO SCH (08:30)
[2023-09-26] MEDS: Ursodiol 300mg capsule PO SCH (08:37)
[2023-09-26] MEDS: lactulose 20gm/30ml cup PO SCH (08:37)
[2023-09-26] MEDS: multivitamins, therapeutics tablet PO SCH (08:37)
[2023-09-26] MEDS: pantoprazole 40mg Tablet.DR PO SCH (08:38)
[2023-09-26] MEDS: ascorbic acid 500mg tablet PO SCH (08:38)
[2023-09-26] MEDS: folic acid 1mg tablet PO SCH (08:38)
[2023-09-26] MEDS: predniSONE 20 mg tablet PO SCH (08:38)
[2023-09-26] MEDS: thiamine 100mg tablet PO SCH (08:38)
[2023-09-26] MEDS: rifaximin 550mg tablet PO SCH (08:38)
[2023-09-26] MEDS: ferrous sulfate 325mg tablet PO SCH (08:38)
[2023-09-26] MEDS: Neutra Phos packet PO SCH ×2 (08:38→13:00)
[2023-09-26] MEDS: acetaminophen 325mg tablet PO PRN (08:47)
[2023-09-26] MEDS ORDERED: FOLI1TAB27 PO (11:24)
[2023-09-26] MEDS ORDERED: MULT-25 PO (11:24)
[2023-09-26] MEDS ORDERED: SPIR50TA5 PO (11:24)
[2023-09-26] MEDS ORDERED: POTA20TA34 PO (11:24)
[2023-09-26] MEDS ORDERED: FER325T PO (11:24)
[2023-09-26] MEDS ORDERED: PRED20TA PO (11:24)
[2023-09-26] MEDS ORDERED: RIFA550T PO (11:24)
[2023-09-26] MEDS ORDERED: PANT40TA54 PO (11:24)
[2023-09-26] MEDS ORDERED: URSO300C2 PO (11:24)
[2023-09-26] MEDS ORDERED: VITC500T PO (11:24)
[2023-09-26] MEDS ORDERED: LACT10SO7 PO (11:24)
[2023-09-26] MEDS ORDERED: thiamine tablet PO (11:24)
[2023-09-26] MEDS ORDERED: CEFD300C3 PO (11:26)
[2023-09-26] MEDS ORDERED: MAGN400C PO (12:46)
[2023-09-26] MEDS ORDERED: ACAM333T8 PO (12:55)
--- NOTE | 2023-09-26 14:29 | NUR ---
Initial: Pt DX acute on chronic liver failure secondary to liver cirrhosis, severe sepsis secondary to subacute bacterial peritonitis and UTI, acute renal failure secondary to hepatorenal syndrome, severe megaloblastic anemia, hyponatremia, hypochloremia, severe hypokalemia, hypophosphatemia, hypomagnesemia, and transaminitis per EMR. Pt underwent paracentesis procedure on 09/25 of which 3.4L was removed. Pt prior was on heart healthy diet though now continues on a sodium restriction diet with average PO intake of ~54% x 13 meals which met 76% of estimated kcal need and ~59% of estimated protein needs. If pt not discharged today, pt may benefit from a ensure high protein BIDWM to help meet estimated needs. Per verbal discussion with physician pt would benefit from liver disease nutrition education prior to discharge today. Pt seen at bedside this afternoon for verbal/written cirrhosis nutrition education. RD contact also provided and encouraged pt to reach out for any nutrition questions or concerns. LBM on 09/25 per EMR. Recommendations: 1.continue sodium restriction diet per MD 2.if pt does not discharge today; pt may benefit from an ensure high protein BIDWM 3.continue folic acid, thiamine, multivitamin, and iron due to Etoh hx and anemia 4.routine bowel care 5.weekly scaled wts Addendum: 09/26/23 at [address] Amended: Links added.
--- NOTE | 2023-09-26 15:20 | NUR ---
Patient discharged home will all belongings and discharge instructions. IV removed and tele moniotor removed and returned to telemarketing fundraiser. Escorted out via wheel chair and left in private vehicle.
== END 2023-09-26 15:20 | disposition home or self-care (01) | DRG 720 ==
LOC: ER 19:05 → ED HOLD 09-21 00:35 → PCU 3S 09-21 07:49
PROVIDERS: ADMIT Internal Medicine; ATTEND Family Medicine
PROC: 0W9G3ZZ Drainage of Peritoneal Cavity, Percutaneous Approach (ICD-10-PCS; principal; 2023-09-20)
PROC: 0W9G3ZZ Drainage of Peritoneal Cavity, Percutaneous Approach (ICD-10-PCS; 2023-09-25)
DX: A41.51 Sepsis due to Escherichia coli [E. coli] (principal); K76.7 Hepatorenal syndrome; K72.00 Acute and subacute hepatic failure without coma; E43 Unspecified severe protein-calorie malnutrition; K65.8 Other peritonitis; K70.31 Alcoholic cirrhosis of liver with ascites; K72.10 Chronic hepatic failure without coma; D53.1 Other megaloblastic anemias, not elsewhere classified; E83.39 Other disorders of phosphorus metabolism; N17.9 Acute kidney failure, unspecified; E87.1 Hypo-osmolality and hyponatremia; E87.8 Other disorders of electrolyte and fluid balance, not elsewhere classified; N39.0 Urinary tract infection, site not specified; E87.6 Hypokalemia; R65.20 Severe sepsis without septic shock; E83.42 Hypomagnesemia; I10 Essential (primary) hypertension; Z87.440 Personal history of urinary (tract) infections; Z83.3 Family history of diabetes mellitus; Z82.49 Family history of ischemic heart disease and other diseases of the circulatory system; Z82.3 Family history of stroke; Z68.31 Body mass index [BMI] 31.0-31.9, adult; Z88.8 Allergy status to other drugs, medicaments and biological substances; Z79.899 Other long term (current) drug therapy; Z91.148 Patient's other noncompliance with medication regimen for other reason
CPT/HCPCS: 36415; 49083; 71045; 76700; 76705; 80048; 80053; 80202; 80329; 81001; 81025; 82042; 82140; 82272; 82728; 83540; 83550; 83605; 83615; 83690; 83735; 83880; 84100; 84132; 84145; 84157; 85007; 85025; 85027; 85610; 85730; 87040; 87070; 87077; 87081; 87088; 87186; 89051; 93005; 93306; 99285; A6250; A6253; A6449; G0378; J0696; J2270; J2405; J2543; J2916; J3370; J3475; J3480; J3490; J7030; J7040; J7060; J7512; P9045; P9047

== ENCOUNTER 2023-10-02 08:45 | Day surgery (SDC) | payer MEDICAID ==
[2023-10-02] VITALS (11 sets, daily range): BP systolic 111–154; BP diastolic 39–89; PULSE 84–106; RESP 16–18; TEMP 98; O2SAT 98–100
[~2023-10-02] VITALS: Ht 167.6 cm; Wt 86.9 kg
[~2023-10-02 08:45] MED LIST changes: +ACAM333T8 PO; -ACET-1008 PO; +CEFD300C3 PO; +FER325T PO; +FOLI1TAB27 PO; -FURO-150 PO; +LACT10SO7 PO; +MAGN400C PO; +MULT-25 PO; -ONDA4TAB6 PO; +PANT40TA54 PO; -POTA-206 PO; +POTA20TA34 PO; +PRED20TA PO; +RIFA550T PO; -SPIR25TA5 PO; +URSO300C2 PO; +VITC500T PO; +thiamine tablet PO
[2023-10-02] MEDS ORDERED: albumin 25% 100mL bottle x 1 IV PRN (09:15)
[2023-10-02] MEDS ORDERED: ACAM333T8 PO (09:26)
[2023-10-02] MEDS ORDERED: ASCO-23 PO (09:27)
[2023-10-02] MEDS ORDERED: CEFD300C3 PO (09:28)
[2023-10-02] MEDS ORDERED: FERR325T28 PO (09:28)
[2023-10-02] MEDS ORDERED: FOLI0.4T6 PO (09:29)
[2023-10-02] MEDS ORDERED: MAGN400C PO (09:31)
[2023-10-02] MEDS ORDERED: LACT10SO3 PO (09:31)
[2023-10-02] MEDS ORDERED: MULT-1085 PO (09:32)
[2023-10-02] MEDS ORDERED: PANT-47 PO (09:32)
[2023-10-02] MEDS ORDERED: POTA20TA34 PO (09:33)
[2023-10-02] MEDS ORDERED: RIFA550T PO (09:35)
[2023-10-02] MEDS ORDERED: Prednisone PO (09:35)
[2023-10-02] MEDS ORDERED: SPIR50TA5 PO (09:36)
[2023-10-02] MEDS ORDERED: THIA50TA10 PO (09:36)
[2023-10-02] MEDS ORDERED: Ursodiol PO (09:37)
[2023-10-02] MEDS ORDERED: CHOL100025 PO (09:38)
[2023-10-02] MEDS ORDERED: CYAN250010 PO (09:38)
[2023-10-02] MEDS ORDERED: ZINC100T2 PO (09:39)
== END 2023-10-02 12:20 | disposition home or self-care (01) ==
LOC: SSTAY O 08:45
PROVIDERS: ATTEND Radiology Vascular & Interventional Radiology
DX: K70.31 Alcoholic cirrhosis of liver with ascites (principal); K72.10 Chronic hepatic failure without coma; E87.6 Hypokalemia; E83.42 Hypomagnesemia; K76.7 Hepatorenal syndrome; D50.9 Iron deficiency anemia, unspecified; E46 Unspecified protein-calorie malnutrition; Z88.8 Allergy status to other drugs, medicaments and biological substances; Z79.899 Other long term (current) drug therapy; F10.20 Alcohol dependence, uncomplicated; Z98.890 Other specified postprocedural states; Z82.49 Family history of ischemic heart disease and other diseases of the circulatory system; Z83.3 Family history of diabetes mellitus; Z82.3 Family history of stroke
CPT/HCPCS: 49083; C1729; P9047; 96360; A6258